=== PATIENT | male | born 1950 | race Caucasian/White ===

== ENCOUNTER → 2016-10-16 | Outpatient (CLI) | payer BC ==
[~2016-10-16] MED LIST: ALBU1AER9 INH; AMLO-110 PO; ASPI81TA28 PO; CALC-206 PO; CETI10TA10 PO; CETI10TA84 PO; DEXT1TAB50 PO; ECON0.05 TOP; FLUT0.0529 NAE; FLUT0.15; FLUT1AER5 INH; HYDR-5688 PO; LEVO-459 PO; LEVO1TAB33 PO; MOME100A INH; MOME200A INH; MONT1TAB3 PO; MULT-506 PO; PRED10TA PO; RTXI500 IV
== END | disposition home or self-care (01) ==
LOC: C.CPL 11:37
PROVIDERS: ATTEND Orthopaedic Surgery
DX: M75.101 Unspecified rotator cuff tear or rupture of right shoulder, not specified as traumatic (principal)

== ENCOUNTER 2016-12-03 00:50 | Inpatient (IN) | payer BC, OTHER ==
[2016-12-03] VITALS (15 sets, daily range): BP systolic 119–165; BP diastolic 62–91; PULSE 59–99; TEMP 36.1–37.6; O2SAT 92–98; Ht 180.3 cm; Wt 97.0 kg
[~2016-12-03] VITALS: Ht 180.3 cm; Wt 97.0 kg
[~2016-12-03 00:50] MED LIST changes: -CETI10TA10 PO; -DEXT1TAB50 PO; -FLUT0.15; -FLUT1AER5 INH; -HYDR-5688 PO; -LEVO-459 PO; -LEVO1TAB33 PO; -MOME100A INH; -MOME200A INH; -MONT1TAB3 PO
[2016-12-03] MEDS ORDERED: POLYETHYLENE (MIRALAX) 17 GM PACK PO PRN (03:30)
[2016-12-03] MEDS ORDERED: ONDANSETRON INJ 2 MG/ML 2 ML VIAL IV PRN (03:30)
[2016-12-03] MEDS ORDERED: ACETAMINOPHEN 325 MG TAB PO PRN (03:30)
[2016-12-03] MEDS ORDERED: MoRPHine SULFATE 2 MG/ML CARP IV PRN (03:30)
[2016-12-03] MEDS ORDERED: NITROGLYCERIN 0.4 MG SL PER TAB CHARGE SL PRN (03:30)
[2016-12-03] MEDS ORDERED: CETI10TA10 PO (03:36)
[2016-12-03] MEDS ORDERED: MONT1TAB3 PO (03:38)
[2016-12-03] MEDS ORDERED: DEXT1TAB50 PO (03:38)
[2016-12-03] MEDS ORDERED: OPTIRAY 320 IV PRN (04:00)
--- NOTE | 2016-12-03 04:22 | History and Physical ---
History & Physical Date & Time of Service: December 03, 2016 at 04:01 Chief Complaint: New Onset Lt Bbb, Bronchitis, Elevated D Dimer Primary Care Physician: Ilya Rubio M.D. History of Present Illness Source: patient, hospital records This is a 66 yo m that is a transfer from [facility] for the evaluation of a new onset LBBB. The patient states that approx a week ago he started with his typical " allergy symptoms' and was taking his regular regimen of INCS, albuterol and cetirizine. Approx three days prior when he was in [place] the patient started to have intermittent chest tightness associated with a very "tight cough". He was productive for clear to yellow mucus without hemoptysis. He denied any chest pain but with every bout of this tightness he would also feel clammy. He never had any nausea with these episodes. He also notes that for the past month he has had increasing dyspnea walking over hills which he never used to have. He typically walks 2-3 miles/ day. As these episodes were unrelenting he decided to go to the [facility] for evaluation. In [place] the patient was found to have eosinophilia, an elevated DDimer and a new LBBB compared to an EKG done approx 4 weeks prior for a right shoulder surgery. [facility] was contacted to continue further evaluation at this hospital. He states he has no history of GA/ stroke/ TIA. He does have a history of a heart murmur as a child associated with rheumatic fever. He had his last stress tests approx 4-5 years ago with Dobutamine which was "very unpleasant". He does not smoke. There is a history of GA in both grandfathers at older ages and a brother in his 60s. he is treated for RA with rituximab. he has a history of asthma. Past Medical/Surgical History Medical Problems: (1) Asthma, Unspecified Status: Chronic (2) Bronchitis Status: Resolved (3) Diab Diamante Wo Compl, Type Ii Or Unspec Type, Uncontrolled Status: Chronic (4) Hyperlipidemia Nec/Nos Status: Chronic (5) Hypertension Nos Status: Chronic (6) Lymphoma Status: Resolved (7) Rheumatoid Arthritis Status: Chronic (8) Sinusitis Status: Resolved (9) Sinusitis Status: Resolved Family History FHx: cancer Social History Smoking Status: Never Smoker Smokeless Tobacco Use: No Alcohol Use: socially Drug Use: none Marital Status: Housing status: lives with family Occupational Status: employed Immunizations History of Influenza Vaccine: Unknown History of Tetanus Vaccine?: utd History of Pneumococcal: Unknown History of Hepatitis B Vaccine: No Multi-Drug Resistant Organisms History of MDRO: No Allergies Coded Allergies: Metronidazole (Verified Allergy, Severe, HIVES AND SHORTNESS OF BREATH, ) Sulfa Antibiotics (Verified Allergy, Intermediate, HIVES, GI UPSET, ) Ciprofloxacin (Verified Adverse Reaction, Mild, GI UPSET, 04/01/16) Home Medications Scheduled Amlodipine (Norvasc), 5 MG PO QAM Aspirin (Aspirin Ec), 1 TAB PO DAILY Cetirizine Hcl (Zyrtec), 10 MG PO DAILY Dextromethorphan-Guaifenesin (Mucinex Dm Maximum Streng), 1 TAB PO BID Montelukast Sodium (Singulair), 1 TAB PO DAILY Multivitamin (Multivitamin), 1 TAB PO QPM Scheduled PRN Albuterol (Proair Hfa), 2 PUFF INH Q4 PRN for SOB/Wheezing Fluticasone Propionate (Nasal) (Flonase), 1 SPRAY NANDA QPM PRN for PRN Review of Systems Constitutional: No chills, No fever Eyes: No worsening of vision ENT: No hearing loss Respiratory: + cough, + dyspnea on exertion, + sputum, + wheezing, No dyspnea at rest, No hemoptysis, No shortness of breath Cardiovascular: + chest pain (tightness) Abdomen: No constipation, No diarrhea, No nausea, No pain, No vomiting Musculoskeletal: No joint pain, No muscle pain Neurologic: No balance problems, No numbness/tingling, No weakness Psychiatric: No depression symptoms Endocrine: No fatigue Integumentary: No rash Allergic / Immunologic: + environmental allergies, + seasonal allergies Physical Exam Vital Signs Date Time Temp Pulse Resp B/P Pulse Ox O2 Delivery O2 Flow Rate FiO2 12/03/16 03:55 37.6 81 17 119/62 92 Nasal Cannula 2.0 12/03/16 03:43 36.7 79 20 165/91 96 Room Air 12/03/16 02:45 36.7 79 18 165/91 94 Room Air General Appearance: no apparent distress Head: normocephalic, atraumatic Eyes: normal inspection ENT: normal ENT inspection Neck: supple Respiratory/Chest: no respiratory distress, no accessory muscle use, + wheezing , + pertinent finding (coarse breath sounds throughout) Cardiovascular: regular rate, rhythm, no murmur, normal peripheral pulses Abdomen/GI: normal bowel sounds, non tender, soft Back: normal inspection Extremities/Musculoskelatal: normal inspection, no calf tenderness, no pedal edema Neurologic/Psych: alert, normal mood/affect, oriented x 3 Skin: normal color, warm/dry, no rash Lymphatic: no adenopathy Diagnostics Laboratory Results Results Past 24 Hours Test 12/03/16 03:27 12/03/16 03:38 Range/Units EKG new LBBB noted Impression Assessment and Plan This is a 66 yo m that has been found to have a new LBBB on EKG and has been suffering from an asthma exacerbation associated with seasonal allergies vs infectious source. New LBBB on EKG, Asses for silent GA/ NSTEMI - tele admission - repeat cbc, bmp and troponin - plan for echo - NPO in case there is a decision for cardiac cath - repeat EKG - FLP Acute asthma exacerbation; eosinophilia, atopy vs infectious? - Duoneb Q4h - Pulmicort bid - patient has an elevation in his glucose currently and would probably benefit from non systemic steroids - Initiate Singulair which may help with seasonal symptoms - considering the eosinophilia patient may benefit from outpt allergy testing if not already done - fluticasone nasal daily - Azithromycin and zosyn - secondary to worsening sputum production and coarse breath sounds deescalate accordingly however most likely atopic in nature as no WBC noted Elevated D Dimer - CTA and LE doppler - reassess once results received HTN - continue amlodipine Elevated glucose - HBA1C DVT Prophylaxis - SCD until decision made for catheterization Level of Care Telemetry Advanced Directives Existing Living Will: No Existing Power of Reinspector: No Resuscitation Status FULL RESUSCITATION VTE Prophylaxis VTE Risk Assessment Done? Y/N: Yes Risk Level: Moderate Given or contraindicated: SCD's Social Service Consult None Apply Note Total Time: Critical Care 30 - 74 minutes Additional Copies To Ilya Rubio M.D. Assessment and Plan Attending Addendum: I have physically seen and examined this patient, have directed their medical care, have supervised the medical residents activities, and agree with the H&P as noted above, with the following changes: NONE
[2016-12-03] MEDS ORDERED: PIPERACILL/TAZOBAC CONSULT ACTIVE PRN (04:45)
[2016-12-03 04:47] LABS: BASO % 0.5 %; BASO ABS # 0.04 K/uL (0-0.2); COMPLETE YES; EOS % 7.6 %; HEMATOCRIT 39.9 % (42-52); IG% 0.5 %; LYMPH ABS # 1.53 K/uL (1.2-3.4); MEAN CELL VOLUME 89.7 fL (80-100); MEAN CORPUSCULAR HEMOGLOBIN 30.8 pg (25-34); MEAN CORPUSCULAR HGB CONC 34.3 g/dl (32-36); MEAN PLATELET VOLUME 8.8 fL (7.4-10.4); MONO % 8.5 %; NEUT % 62.9 %; PLATELET COUNT 143 K/uL (130-400); RED BLOOD COUNT 4.45 M/uL (4.7-6.1); WHITE BLOOD COUNT 7.64 K/uL (4.8-10.8)
[2016-12-03 04:57] LABS: PROTHROMBIN TIME (PATIENT) 10.9 SECONDS (9.0-12.0)
[2016-12-03] MEDS ORDERED: PIPERACILL/TAZOBAC IV 3.375 GM in DEXTROSE 5% 100ML IV ONE (05:00)
[2016-12-03 05:04] LABS: BLOOD UREA NITROGEN 15 mg/dl (7-18); BUN/CREATININE RATIO 15.8 (10-20); CALCIUM 8.5 mg/dl (8.5-10.1); CARBON DIOXIDE 28 mmol/L (21-32); CHLORIDE 110 mmol/L (98-107); CREATININE 0.96 mg/dl (0.60-1.40); GLUCOSE 109 mg/dl (70-99); POTASSIUM 3.9 mmol/L (3.5-5.1); SODIUM 143 mmol/L (136-145)
[2016-12-03] MEDS: FLUTICASONE PROPIONATE NA SPR 16 GM BTL SCH (05:05)
[2016-12-03 05:15] LABS: ALB/GLOB RATIO 1.1 (0.9-2)
[2016-12-03 05:16] LABS: ALKALINE PHOSPHATASE 72 U/L (45-117); ALT/SGPT 54 U/L (12-78); AST/SGOT 42 U/L (15-37); CHOLESTEROL 83 mg/dl (0-200); CHOLESTEROL/HDL RATIO 1.8; HDL CHOLESTEROL 47 mg/dl; LDL CHOLESTEROL CALCULATED 21 mg/dl; TRIGLYCERIDES 76 mg/dl (0-150); VERY LOW DENSITY LIPOPROT CALC 15 mg/dl
[2016-12-03] MEDS ORDERED: PIPERACILL/TAZOBAC IV 3.375 GM in DEXTROSE 5% 100ML 100 ML IV SCH (06:00)
[2016-12-03 06:44] LABS: ESTIMATED AVERAGE GLUCOSE 117 mg/dl; HA1C FLAG Normal (Normal)
--- NOTE | 2016-12-03 07:45 | DIAGNOSTIC IMAGING REPORT ---
BILATERAL LOWER EXTREMITY VENOUS DOPPLER CLINICAL HISTORY: Elevated d-dimer. New onset left bundle branch block. History of lymphoma. COMPARISON STUDY: CT of the abdomen and pelvis April 01, 2016. TECHNIQUE: Sonography of the deep venous system of the bilateral lower extremities was performed. Compression and augmentation were evaluated. FINDINGS: The bilateral common femoral, superficial femoral and popliteal veins were compressible. Augmentation was normal. Flow was shown within the deep calf vessels. IMPRESSION: 1. No evidence of deep venous thrombus within the bilateral lower extremities. 2. Enlarged left inguinal lymph node which measures 3.7 x 1.5 x 2.9 cm. This node was not visualized on CT of April 01, 2016. This finding is suspicious for lymphoma given the clinical history. Electronically signed by: José Miguel Cruz M.D. 12/03/2016 7:44 AM Dictated Date/Time: 12/03/2016 7:32 AM
--- NOTE | 2016-12-03 07:47 | DIAGNOSTIC IMAGING REPORT ---
CHEST CTA for PULMONARY ARTERIES CT DOSE: 655.69 mGy.cm HISTORY: Elevated d-dimer. Recent surgery. Short of breath. TECHNIQUE: Multiaxial CT images of the chest were performed following the intravenous administration of contrast to evaluate the pulmonary arteries. Maximal intensity projection images were also obtained. COMPARISON STUDY: Chest CT 06/15/2014. FINDINGS: No evidence for an aortic dissection or pulmonary embolus. Trace bilateral pleural effusions, unchanged. Hepatic steatosis. The spleen and adrenal glands are unremarkable. An 8 mm left thyroid nodule. No significant mediastinal or hilar lymphadenopathy. The heart is normal in size. A few prominent bilateral axillary lymph nodes. These have increased in size compared to the prior study. Dominant left axillary lymph node measures 1.3 x 0.9 cm. No pneumothorax. Mild bibasilar bronchial wall thickening. A 6 mm nodular density within the right lower lobe on image 152. This is similar to the prior study and is therefore likely benign. Small areas of consolidation within the lower lobes posteriorly which favor mild atelectasis. IMPRESSION: 1. No evidence for pulmonary embolus. 2. Trace bilateral pleural effusions, unchanged. 3. Mild bibasilar bronchial wall thickening. 4. Hepatic steatosis Electronically signed by: Rafael Hampton M.D. 12/03/2016 7:46 AM Dictated Date/Time: 12/03/2016 7:39 AM
[2016-12-03] MEDS: BUDESONIDE 0.5 MG/2 ML VIAL (PULMICORT) INH SCH ×2 (07:51→19:30)
[2016-12-03] MEDS: ALBUT/IPRATROP 3MG/0.5MG NEB 3 ML VIAL INH SCH ×4 (07:51→19:30)
--- NOTE | 2016-12-03 07:57 | Hospitalist Progress Note ---
Hospitalist Progress Note Date of Service December 03, 2016. (Mary Dobbs PA-C) Subjective Pt evaluation today including: conversation w/ patient, physical exam, chart review, lab review, review of studies Pain: None PO Intake: NPO Voiding: no voiding problems The patient was seen and examined this morning. Pt reports feeling weak this morning but denies any acute onset of chest pain. He denies sob at rest or on exertion. He is asking about his labwork and results were discussed with him. He understands that it is possible that he needs a cardiac cath. He is currently on antibiotics for upper respiratory infection, pt denies fever, sweats or chills. Additional Comments: 6 point ROS was obtained and otherwise negative. (Mary Dobbs PA-C) Objective Vital Signs Date Time Temp Pulse Resp B/P Pulse Ox O2 Delivery O2 Flow Rate FiO2 12/03/16 04:00 Nasal Cannula 2.0 12/03/16 03:55 37.6 81 17 119/62 92 Nasal Cannula 2.0 12/03/16 03:43 36.7 79 20 165/91 96 Room Air 12/03/16 02:45 36.7 79 18 165/91 94 Room Air (Mary Dobbs PA-C) Physical Exam General Appearance: WD/WN, no apparent distress Eyes: PERRL, EOMI ENT: hearing grossly normal, pharynx normal Neck: supple, no JVD Respiratory/Chest: no respiratory distress, no accessory muscle use, + plerual rub (room air, diminished breath sounds in L field), + pertinent finding Cardiovascular: regular rate, rhythm, + systolic murmur Abdomen: normal bowel sounds, non tender, soft, no organomegaly Extremities: non-tender, normal inspection, no pedal edema, no calf tenderness Neurologic/Psychiatric: alert, normal mood/affect, oriented x 3 Skin: normal color, warm/dry (Mary Dobbs PA-C) Laboratory Results Last 24 Hours Test 12/03/16 04:35 White Blood Count 7.64 K/uL Red Blood Count 4.45 M/uL Hemoglobin 13.7 g/dL Hematocrit 39.9 % Mean Corpuscular Volume 89.7 fL Mean Corpuscular Hemoglobin 30.8 pg Mean Corpuscular Hemoglobin Concent 34.3 g/dl Platelet Count 143 K/uL Mean Platelet Volume 8.8 fL Neutrophils (%) (Auto) 62.9 % Lymphocytes (%) (Auto) 20.0 % Monocytes (%) (Auto) 8.5 % Eosinophils (%) (Auto) 7.6 % Basophils (%) (Auto) 0.5 % Neutrophils # (Auto) 4.80 K/uL Lymphocytes # (Auto) 1.53 K/uL Monocytes # (Auto) 0.65 K/uL Eosinophils # (Auto) 0.58 K/uL Basophils # (Auto) 0.04 K/uL RDW Standard Deviation 43.7 fL RDW Coefficient of Variation 13.3 % Immature Granulocyte % (Auto) 0.5 % Immature Granulocyte # (Auto) 0.04 K/uL Prothrombin Time 10.9 SECONDS Prothromb Time International Ratio 1.0 Sodium Level 143 mmol/L Potassium Level 3.9 mmol/L Chloride Level 110 mmol/L Carbon Dioxide Level 28 mmol/L Anion Gap 5.0 mmol/L Blood Urea Nitrogen 15 mg/dl Creatinine 0.96 mg/dl Est Creatinine Clear Calc Drug Dose 90.9 ml/min Estimated GFR () 95.1 Estimated GFR (Non- 82.0 BUN/Creatinine Ratio 15.8 Random Glucose 109 mg/dl Estimated Average Glucose 117 mg/dl Hemoglobin A1c 5.7 % Calcium Level 8.5 mg/dl Total Bilirubin 0.6 mg/dl Aspartate Amino Transf (AST/SGOT) 42 U/L Alanine Aminotransferase (ALT/SGPT) 54 U/L Alkaline Phosphatase 72 U/L Troponin I < 0.015 ng/ml Total Protein 6.6 gm/dl Albumin 3.5 gm/dl Globulin 3.1 gm/dl Albumin/Globulin Ratio 1.1 Triglycerides Level 76 mg/dl Cholesterol Level 83 mg/dl HDL Cholesterol 47 mg/dl LDL Cholesterol, Calculated 21 mg/dl VLDL Cholesterol, Calculated 15 mg/dl Cholesterol/HDL Ratio 1.8 Procalcitonin 0.09 ng/ml (Mary Dobbs, JULIUS) Assessment and Plan This is a 66 yo m that has been found to have a new LBBB on EKG and has been suffering from an asthma exacerbation associated with seasonal allergies vs infectious source. New LBBB on EKG, Asses for silent GA/ NSTEMI - Trending cardiac biomarkers, initial was negative, follow x 2 more sets - echo ordered for this morning - NPO in case there is a decision for cardiac cath, await cardiology consultation - appreciate recs - repeat EKG this morning showing depressed ST wave inversions in the anterior leads which are concerning for ischemia. This has changed from EKG last evening where he had a new onset LBBB. Acute asthma exacerbation; eosinophilia, atopy vs infectious? - Duoneb Q4h - Pulmicort bid - Initiate Singulair which may help with seasonal symptoms - considering the eosinophilia patient may benefit from outpt allergy testing if not already done - fluticasone nasal daily - Azithromycin and zosyn - secondary to worsening sputum production and coarse breath sounds, will dc zosyn Elevated D Dimer - CTA- without evidence for PE, CT does show bilateral trace pleural effusions. - Venous doppler IMPRESSION: No evidence of deep venous thrombus within the bilateral lower extremities. *Enlarged left inguinal lymph node which measures 3.7 x 1.5 x 2.9 cm. This node was not visualized on CT of April 01, 2016. This finding is suspicious for lymphoma given the clinical history. HTN - HOLD amlodipine 5 mg daily as BP remains stable Elevated glucose - HBA1C = 5.7 - Follow on daily bmp DVT ppx: Teds, scds, no chemical anticoagulation at this time. CODE STATUS: FULL CODE Disposition: From home, await lab results and if need for nuclear stress test vs cardiac cath (Mary Dobbs PA-C) PA Physician Supervision Note: I interviewed and examined the patient. Discussed with Mary Dobbs PAC and agree with findings and plan as documented in the note. Any exceptions or clarifications are listed here: None Pt has no further chest pain but complains of persistent chest tightness, SOB and cough. I did discuss the case with Dr Alfonso regarding ECG changes and he eval with determinination to have stress if baseline echo normal noted LN on inguinal u/s and some minor changes on CTA, may need biopsy vitals stable car regular lungs with scant wheezes eval for unstable ECG changes that may imply CAD, once this is complete consider FNA of groin LN Documented By: Justino Perkins (Justino Perkins M.D.)
[2016-12-03] MEDS: AZITHROMYCIN IV 500 MG in DEXTROSE 5% 250ML 250 ML IV SCH (08:48)
[2016-12-03] MEDS ORDERED: HEPARIN SOD 5000 UNIT/0.5 ML CARP SQ SCH (09:00)
[2016-12-03] MEDS: PIPERACILL/TAZOBAC IV 3.375 GM in DEXTROSE 5% 100ML IV SCH ×2 (11:15→18:14)
--- NOTE | 2016-12-03 16:45 | ECHOCARDIOGRAM REPORT ---
*NOTICE TO RECEIVING [employer] This information is strictly Confidential and protected under [place] law. [place] law prohibits you from making any further disclosure of this information unless further disclosure is expressly permitted by the written consent of the person to whom it pertains or is authorized by law. A general authorization for the release of medical or other information is not sufficient for this purpose. Hospital accepts no responsibility if the information is made available to any other person, INCLUDING THE PATIENT. Interpretation Summary * Name: JIMBO XIAO Study Date: 12/03/2016 02:48 PM BP: 127/77 mmHg * Patient Location: C.2T\S\S241\S\1 HR: 63 * : 1950 (M/d/yyyy) Gender: Male Height: 70 in * Age: 66 yrs Ethnicity: CA Weight: 219 lb * Ordering Physician: Sharri Snow * Performed By: Lyly Barillas * * Reason For Study: NEW LBBB * BSA: 2.2 m2 * Normal biventricular systolic function. * Left ventricular diastolic dysfunction. * Mild left atrial dilatation. * Trace aortic regurgitation. * Trace pulmonic regurgitation. * Trace tricuspid regurgitation. * Trace mitral regurgitation. * -- Conclusions -- * Aortic valve sclerosis mild, without significant aortic valvular stenosis. Procedure Details * A complete two-dimensional transthoracic echocardiogram was performed (2D, M-mode, Doppler and color flow Doppler). * A contrast injection of Definity was performed to improve assessment of LV function. * Contrast was injected into an intravenous site in the left arm. * One vial of Definity ultrasound contrast was diluted in normal saline to a total volume of 10 ml. A total of '3' ml of solution was administered during imaging. * Lot # [id number] of Definity utilized for procedure. * Expiration date 12/21. * The attending nurse who injected the contrast agent was GEOVANNA JIMÉNEZ RN. Left Ventricle * The left ventricle is normal in size. * Proximal septal thickening is noted. * Ejection Fraction = 55-60%. * Left ventricular systolic function is normal. * A full diastolic examination was done with clinical findings of Class I diastolic dysfunction. * The left ventricular wall motion is normal. Right Ventricle * The right ventricular systolic function is normal as assessed by tricuspid annular plane systolic excursion (TAPSE) (normal >1.5 cm). Atria * The left atrium is mildly dilated. * Right atrial size is normal. * No ASD detected; PFO is not assessed. Mitral Valve * The mitral valve is normal. * There is no mitral valve stenosis. * There is trace mitral regurgitation. Tricuspid Valve * The tricuspid valve is normal. * There is no tricuspid stenosis. * There is trace tricuspid regurgitation. * Right ventricular systolic pressure is normal. Aortic Valve * The aortic valve is trileaflet. * The aortic valve opens well. * Aortic valve sclerosis mild, without significant aortic valvular stenosis. * Aortic stenosis is absent. * Trace aortic regurgitation. Pulmonic Valve * The pulmonary valve is inadequately visualized, but the Doppler data is adequate for interpretation. * There is no pulmonic valvular stenosis. * Trace pulmonic valvular regurgitation. Pericardium/Pleural * There is no pericardial effusion. Great Vessels * Normal inferior vena cava diameter and respiratory variation suggests normal central venous pressure. MMode 2D Measurements and Calculations IVSd 1.1 cm IVSs 1.8 cm LVIDd 4.2 cm LVIDs 2.9 cm LVPWd 1.1 cm LVPWs 2.2 cm IVS/LVPW 10 FS 32.1 % EDV(Teich) 78.9 ml ESV(Teich) 31.0 ml EF(Teich) 60.7 % EDV(cubed) 74.4 ml ESV(cubed) 23.3 ml EF(cubed) 68.8 % % IVS thick 67.9 % % LVPW thick 99.5 % LV mass(C)d 154.9 grams LV mass(C)dI 71.4 grams/m\S\2 LV mass(C)s 248.6 grams LV mass(C)sI 114.6 grams/m\S\2 SV(Teich) 47.9 ml SI(Teich) 22.1 ml/m\S\2 SV(cubed) 51.2 ml SI(cubed) 23.6 ml/m\S\2 ACS 1.7 cm LA dimension 4.2 cm asc Aorta Diam 3.6 cm LVOT diam 2.2 cm LVOT area 3.7 cm\S\2 LVAd ap4 44.3 cm\S\2 LVLd ap4 10.0 cm EDV(MOD-sp4) 159.0 ml EDV(sp4-el) 166.4 ml LVAs ap4 24.8 cm\S\2 LVLs ap4 7.9 cm ESV(MOD-sp4) 64.3 ml ESV(sp4-el) 66.3 ml EF(MOD-sp4) 59.5 % EF(sp4-el) 60.1 % LVAd ap2 33.4 cm\S\2 LVLd ap2 9.1 cm EDV(MOD-sp2) 98.8 ml EDV(sp2-el) 103.4 ml LVAs ap2 19.2 cm\S\2 LVLs ap2 7.7 cm ESV(MOD-sp2) 40.3 ml ESV(sp2-el) 40.3 ml EF(MOD-sp2) 59.2 % EF(sp2-el) 61.0 % LVLd %diff -9.55 % EDV(MOD-bp) 131.9 ml LVLs %diff -2.17 % ESV(MOD-bp) 51.4 ml EF(MOD-bp) 61.0 % SV(MOD-sp4) 94.7 ml SI(MOD-sp4) 43.6 ml/m\S\2 SV(MOD-sp2) 58.5 ml SI(MOD-sp2) 27.0 ml/m\S\2 SV(MOD-bp) 80.5 ml SI(MOD-bp) 37.1 ml/m\S\2 SV(sp4-el) 100.0 ml SI(sp4-el) 46.1 ml/m\S\2 SV(sp2-el) 63.1 ml SI(sp2-el) 29.1 ml/m\S\2 Doppler Measurements and Calculations MV E max sheri 53.6 cm/sec MV A max sheri 87.2 cm/sec MV E/A 0.61 MV dec time 0.30 sec Ao V2 max 136.1 cm/sec Ao max PG 7.4 mmHg Ao max PG (full) 4.9 mmHg ANITHA(V,A) 2.2 cm\S\2 ANITHA(V,D) 2.2 cm\S\2 AI max sheri 484.7 cm/sec AI max PG 94.0 mmHg AI dec slope 210.6 cm/sec\S\2 AI P1/2t 674.0 msec LV V1 max PG 2.5 mmHg LV V1 max 79.6 cm/sec PA V2 max 76.0 cm/sec PA max PG 2.3 mmHg TR max sheri 246.8 cm/sec
[2016-12-03] MEDS ORDERED: METHYLPREDNISOLONE IV 40 MG in SYRINGE 0 ML IV ONE (17:00)
--- NOTE | 2016-12-03 18:31 | CARDIOLOGY CONSULTATION ---
DATE OF CONSULTATION: 12/03/2016 PRIMARY PHYSICIAN: Ilya Rubio MD ATTENDING PHYSICIAN: Justino Perkins MD CONSULTATION: Jaime Alfonso MD HISTORY OF PRESENT ILLNESS: The patient is a 66-year-old white male. He has a longstanding history of asthma and environmental allergies. He states that on November 27, he began to develop symptoms consistent with environmental allergies. He had sinus congestion and sinus pain. He also had a postnasal drip. Thereafter, he began to develop a cough associated with wheezing and sputum production. He states the cough has been productive of green sputum. No blood in the sputum. No sore throat or earache. No fevers or chills. The cough progressively worsened. He was coughing so much that he began to develop a muscular type pain in his right upper quadrant. This was worse with coughing or deep breathing. He heard himself wheezing. Because of the persistent cough, he went to the [facility] for evaluation on the morning of December 02. An electrocardiogram was performed and revealed a left bundle-branch block. No previous history of left bundle-branch block. The rate with the left bundle-branch block was 77 beats per minute. Sinus rhythm with mild first-degree AV block. Cardiac enzymes performed at [facility] were negative for myocardial ischemia. He was treated with a DuoNeb nebulizer as well as IV fluids. Because of the left bundle-branch block, he was transferred to the [facility]. History is obtained by me from the patient. Also obtained from his and son, who are in attendance in the room at the time. The patient states to me that he has not experienced any chest tightness or chest pain. He denies any anginal type pains. He states his only symptom over the past several days has been the nasal congestion, post nasal drip, cough, wheezing, and dyspnea. He steadfastly denies that he has been experiencing any chest tightness or chest pain. No other anginal type pain such as shoulder, arm, neck, or back discomfort. He does have right lower chest and upper quadrant musculoskeletal type pain with prolonged coughing. It was reported that he was experiencing chest tightness with sensation of feeling "clammy." The patient denies that he is having chest tightness with clamminess sensation. He states that on occasion, he has had this sensation of feeling clammy without any associated symptoms. No definite fevers or chills. Prior to that the onset of his symptoms on November 27, he had been in his usual state of health. He can normally walk up to 2-3 miles at a time without any limiting cardiac or pulmonary complaints. On walking up a steep incline, he does have stable dyspnea. He denies any exertionally precipitated chest pains. No orthopnea or PND. No palpitations, lightheadedness, syncope, or peripheral edema. The patient states that since transfer to [facility], he continues to have a cough. His family has heard him wheezing in the room. He states that yesterday his sputum production decreased, but the cough has persisted. He feels that he cannot bring up the sputum at this time. PAST MEDICAL HISTORY: 1. Asthma and environmental allergies. 2. Hypertension for the past 4-5 years. 3. History of low cholesterol levels. 4. No history of diabetes mellitus. 5. Status post treatment for non-Hodgkin's lymphoma. Six cycles of R-CHOP chemotherapy. 6. Episode of supraventricular tachycardia on 10/27/2015. The electrocardiogram from his visit to [facility] at that time reviewed by me. It shows supraventricular tachycardia at a rate of 138 beats per minute. The patient reports he was given intravenous medication, which terminated the rhythm. No other history of arrhythmia. 7. History of undergoing cardiac catheterization in 2008, performed at [facility]. The report was reviewed by me. It states normal coronary arteries, normal LV systolic function and wall motion. On 10/28/2015, he underwent a Lexiscan nuclear perfusion study. Normal coronary artery perfusion and normal LV wall motion reported. On the same day, he underwent an echocardiogram. The report states that there was normal LV size and wall thickness. Lateral, posterior, apical, inferior, and apical wall motion abnormalities were reported. It is reported that these areas were hypokinetic. The reported LV ejection fraction was 35%-40%. Trace aortic insufficiency. CT angiogram performed on 10/27/2015 revealed no significant coronary artery calcifications. No pulmonary embolus. Holter monitor performed on 11/09/2015 revealed sinus rhythm and sinus bradycardia. First-degree AV block. Rare PACs. Rare PVCs. 8. Rheumatoid arthritis. 9. History of diverticulosis and diverticulitis. 10. Status post surgery of right shoulder 4 weeks ago. Arthroscopic surgery. 11. Status post arthroscopic surgery, right knee in March 2016. 12. Status post pilonidal cyst resection. CURRENT MEDICATIONS: Singulair 10 mg at bedtime, piperacillin/tazobactam 3.375 grams IV q. 8 hours, Flonase nasal spray 2 sprays daily, azithromycin 5 mg IV daily, DuoNeb 3 mL q.i.d., Pulmicort 0.5 mg b.i.d., and several p.r.n. medications. ALLERGIES AND ADVERSE DRUG REACTIONS: CIPROFLOXACIN, METRONIDAZOLE, AND SULFA ANTIBIOTICS. SOCIAL HISTORY: The patient is and lives with his . He is a retired auto headlight mechanic. He had worked at [employer]. He currently does not smoke cigarettes. Remote history of cigarette smoking. FAMILY HISTORY: A brother sustained a myocardial infarction in his 60s. That brother was an alcoholic. REVIEW OF SYSTEMS: 1. As above. 2. No cerebrovascular or peripheral vascular complaints. 3. Varicose veins of both legs. 4. Chronic foot pain and "dropped arches." 5. No GI complaints. 6. No urinary complaints. PHYSICAL EXAMINATION: GENERAL: The patient is sitting up in bed. Frequent episodes of nonproductive coughing. VITAL SIGNS: Late this morning with oral temperature 36.4, pulse 63, blood pressure 127/77, and pulse oximetry on room air 95%. HEAD: Normal. EYES: Pupils are equal and round. Anicteric. Conjunctivae normal. No xanthelasma. FACE: No tenderness on palpation over the frontal or maxillary sinuses. MOUTH: No obvious dental abnormalities. Oropharynx is well visualized. No erythema or exudate. NECK: No jugular venous distention. Carotids 2/2 bilaterally. Normal upstroke. No bruits. No adenopathy. LUNGS: Diminished breath sounds in all lung mott. Diffuse rhonchi and expiratory wheezing in all lung mott. Decreased air movement. HEART: PMI normal. No lifts or heaves. Regular rate and rhythm. S1 and S2 normal. No S3 or S4. No murmur or rub. ABDOMEN: Soft. Nontender. No palpable masses or organomegaly. No bruits. EXTREMITIES: No pretibial edema. Varicose veins in both lower legs. Nontender. No cyanosis or clubbing. PULSES: Distal pulses in all extremities strongly palpable. NEUROLOGICAL: Alert and oriented x3. Motor grossly intact. PSYCHIATRIC: Affect is normal. DATA: Electrocardiogram performed this morning at 07:30 a.m. shows sinus bradycardia, first-degree AV block. T-wave inversions in V1-V4. Consider ischemia. Venous Doppler study of the legs on December 03 without evidence of deep venous thrombosis. CT angiogram of the chest on December 03 with no evidence for pulmonary embolus. Mild bibasilar bronchial wall thickening. Atelectasis in the lower lobes. Hepatic steatosis. Trace bilateral pleural effusions, unchanged from a study of 06/15/2014. No evidence of aortic dissection or pulmonary embolus. LABORATORY DATA: At [facility] show WBC 7.64, hemoglobin 13.7, hematocrit 39.9, and platelet count 143. INR 1.0. Metabolic profile, sodium 143, potassium 3.9, chloride 110, carbon dioxide 28, BUN 15, creatinine 0.96, and random glucose 109. Troponin I less than 0.015. Lipid profile: Total cholesterol 83, triglycerides 76, calculated LDL 21, and HDL 47. Hemoglobin A1c 5.7. ASSESSMENT: 1. Asthmatic bronchitis. On exam this afternoon, he has evidence of significant bronchospasm. He has diffuse wheezing and decreased air movement in all lung mott. 2. Recently with cough productive of a purulent appearing sputum. The sputum production decreased yesterday. He feels that he cannot clear sputum yesterday afternoon, last night, and today. 3. He denies to me that he was experiencing any anginal symptoms. He was asked repeatedly whether he was experiencing any chest tightness. He steadfastly denies this symptom to me. The reason he sought medical attention yesterday was because of the persistent cough associated with dyspnea and wheezing. 4. Good exercise tolerance prior to his recent respiratory illness. He was walking up to 3 miles at a time without any limiting cardiac or pulmonary complaints. 5. Cardiac catheterization report from 2008 reported normal coronary arteries. 6. Lexiscan pharmacologic stress test in 2015 negative for evidence of myocardial ischemia. It was reported that the LV wall motion was normal. On the same day, it was reported that he had segmental wall motion abnormalities on echocardiography. No documented history of myocardial infarction. 7. Cardiac enzymes on this admission negative for myocardial injury. The cardiac enzymes at [facility] were also negative. 8. History of supraventricular tachycardia in October 2015. Since then, no evidence of recurrent arrhythmias. 9. Mild first degree atrioventricular block. 10. Left bundle-branch block on electrocardiogram yesterday performed at [facility]. Subsequent resolution. No evidence of acute myocardial infarction by cardiac enzymes. He does have hypertension, which could predispose the development of left bundle-branch block. Also, cannot exclude that he has intrinsic conduction disease. This would be conduction disease involving his bundles. 11. Abnormal Electrocardiogram this morning with T-wave inversions. They are consistent with ischemia. There are no diagnostic ST segment depressions of ischemia. 12. Very low LDL. He does not take any medications to lower his cholesterol. He states he always has a low LDL. RECOMMENDATIONS: 1. It was extensively discussed with the patient his recent illness and symptoms. It was extensively discussed with him his prior cardiac history. Extensive discussion regarding current symptoms. In light of his negative cardiac enzymes and lack of any anginal symptoms (as he reports to me), would hold off on performing a cardiac catheterization. For the patient with a left bundle-branch block came to the office for evaluation and was not having any unstable anginal symptoms, we would usually just recommend an echocardiogram to assess LV wall motion and function and a myocardial perfusion scan with pharmacologic or exercise stress. This would be to exclude myocardial ischemia. Initially, I thought that the patient had typical anginal symptoms. After speaking with him, he denies any anginal type symptoms. Thus, at this time, recommend echocardiogram (which is being performed at the time of this dictation). We will order a Lexiscan pharmacologic stress test for tomorrow. 2. Even if the patient and I decide upon him getting a cardiac catheterization, we will not perform today as he has evidence of significant bronchospasm on exam. It is unlikely that he could lie flat for a prolonged period of time. Also, sedation could alter his respiratory status. Would not perform a cardiac catheterization unless he had evidence of unstable myocardial ischemia or evidence of significant myocardial ischemia on the nuclear perfusion scan. 3. Guaifenesin to help loosen the secretions. 4. Consider intravenous steroids. 5. Aspirin 81 mg daily in the event the patient did have underlying coronary artery disease. 6. Monitor blood pressure. Reinstitute antihypertensive therapy if his blood pressure becomes elevated. 7. Repeat electrocardiogram tomorrow. Over 1 hour was spent by me in evaluation and examining this patient. Over 50% of time was spent with the patient in obtaining history and performing physical exam. Medical records from [facility], [facility], and [facility] were reviewed by me. These included his prior cardiac testing results and his electrocardiograms. The electrocardiograms were personally reviewed by me. Thank you for asking me to see this patient in cardiology consultation. ELIZABETH
[2016-12-03] MEDS ORDERED: GUAIFENESIN SUGAR FREE 200 MG/10 ML UDC PO PRN (19:00)
[2016-12-03] MEDS ORDERED: MONTELUKAST SOD 10 MG TAB PO SCH (21:00)
[2016-12-04] VITALS (9 sets, daily range): BP systolic 133–159; BP diastolic 62–81; PULSE 62–86; TEMP 36.4–36.9; O2SAT 92–96
[2016-12-04] MEDS: PIPERACILL/TAZOBAC IV 3.375 GM in DEXTROSE 5% 100ML IV SCH ×2 (01:41→10:08)
[2016-12-04] MEDS: BUDESONIDE 0.5 MG/2 ML VIAL (PULMICORT) INH SCH (07:27)
[2016-12-04] MEDS: ALBUT/IPRATROP 3MG/0.5MG NEB 3 ML VIAL INH SCH ×4 (07:27→15:11)
[2016-12-04] MEDS: AZITHROMYCIN IV 500 MG in DEXTROSE 5% 250ML 250 ML IV SCH (07:47)
[2016-12-04] MEDS: FLUTICASONE PROPIONATE NA SPR 16 GM BTL SCH (07:48)
--- NOTE | 2016-12-04 08:06 | Hospitalist Progress Note ---
Hospitalist Progress Note Date of Service Dec 04, 2016. (Mary Dobbs PA-C) Objective Vital Signs Date Time Temp Pulse Resp B/P (MAP) Pulse Ox O2 Delivery O2 Flow Rate FiO2 12/04/16 07:28 62 16 96 Room Air 12/04/16 04:10 36.4 73 18 133/81 (98) 92 Room Air 12/04/16 04:00 Room Air 12/03/16 23:59 Room Air 12/03/16 23:16 37.1 99 20 125/80 (95) 97 Room Air 12/03/16 21:44 93 135/81 (99) 12/03/16 20:00 92 Room Air 12/03/16 19:49 36.5 83 16 151/84 (106) 92 Room Air 12/03/16 19:30 74 16 96 Room Air 12/03/16 16:00 96 Room Air 12/03/16 15:23 36.6 62 17 138/81 (100) 96 Room Air 12/03/16 12:00 95 Room Air 12/03/16 11:28 36.4 63 20 127/77 (94) 95 Room Air 12/03/16 11:19 88 20 98 Room Air 12/03/16 08:00 94 Room Air 2.0 12/03/16 08:00 36.1 59 20 124/75 (91) 94 Room Air (Mary Dobbs PA-C) Assessment and Plan This is a 66 yo m that has been found to have a new LBBB on EKG and has been suffering from an asthma exacerbation associated with seasonal allergies vs infectious source. New LBBB on EKG, Asses for silent IN/ NSTEMI - Trending cardiac biomarkers, initial was negative, follow x 2 more sets - echo ordered for this morning - NPO in case there is a decision for cardiac cath, await cardiology consultation - appreciate recs - repeat EKG this morning showing depressed ST wave inversions in the anterior leads which are concerning for ischemia. This has changed from EKG last evening where he had a new onset LBBB. - a Lexiscan pharmacologic stress test planned for today - no plans for cardiac cath, will need to determine if as evidence of significant for unstable myocardial ischemia or evidence of significant ischemia on the nuclear perfusion scan. - Asa 81 mg ordered daily Acute asthma exacerbation; eosinophilia, atopy vs infectious? - Duoneb Q4h - Pulmicort bid - Initiate Singulair which may help with seasonal symptoms - considering the eosinophilia patient may benefit from outpt allergy testing if not already done - fluticasone nasal daily - Azithromycin and zosyn - secondary to worsening sputum production and coarse breath sounds, will dc zosyn - Pt had been taking guiafenesin prior to admission, will continue at this time. Elevated D Dimer - CTA- without evidence for PE, CT does show bilateral trace pleural effusions. - Venous doppler IMPRESSION: No evidence of deep venous thrombus within the bilateral lower extremities. *Enlarged left inguinal lymph node which measures 3.7 x 1.5 x 2.9 cm. This node was not visualized on CT of April 01, 2016. This finding is suspicious for lymphoma given the clinical history. HTN - HOLD amlodipine 5 mg daily as BP remains stable Elevated glucose - HBA1C = 5.7 - Follow on daily bmp DVT ppx: Teds, scds, no chemical anticoagulation at this time. CODE STATUS: FULL CODE Disposition: From home, await lab results and if need for nuclear stress test vs cardiac cath (Mary Dobbs PA-C) PA Physician Supervision Note: I interviewed and examined the patient. Discussed with Mary Dobbs PAC and agree with findings and plan as documented in the note. Any exceptions or clarifications are listed here: None Pt has no further chest pain, feels chest discomfort was from coughing is on antibiotics for same and feels improved after one dose of steroids noted LN on inguinal u/s and some minor changes on CTA, may need biopsy vitals stable car regular lungs with scant wheezes, rhonchi at left base eval for unstable angina with nuclear scan treat for bronchitis with reactive airway with antibiotics consider FNA of groin LN, once cardiac work up is complete Documented By: Justino Perkins (Justino Perkins M.D.)
[2016-12-04] MEDS ORDERED: REGADENOSON 0.4 MG/5 ML SYR ONE (11:43)
[2016-12-04] MEDS ORDERED: LEVO-459 PO (16:33)
--- NOTE | 2016-12-04 16:36 | Discharge Instructions ---
Discharge Instructions Date of Service Dec 04, 2016. Admission Reason for Admission: New Onset Lt Bbb, Bronchitis, Elevated D Dimer Discharge Discharge Diagnosis / Problem: new LBBB, normal nuclear stress test Discharge Goals Goal(s): Diagnostic testing, Therapeutic intervention Activity Recommendations Activity Limitations: resume your previous activity . Current Hospital Diet Patient's current hospital diet: AHA Diet (Heart Healthy) Discharge Diet Recommended Diet: Regular Diet Pending Studies Studies pending at discharge: no Laboratory Results Hemoglobin A1c Test 12/03/16 04:35 Range/Units Estimated Average Glucose 117 mg/dl Hemoglobin A1c 5.7 H 4.5-5.6 % Lipid Panel Test 12/03/16 04:35 Range/Units Triglycerides Level 76 0-150 mg/dl Cholesterol Level 83 0-200 mg/dl HDL Cholesterol 47 mg/dl Cholesterol/HDL Ratio 1.8 LDL Cholesterol, Calculated 21 mg/dl Medical Emergencies . Who to Call and When: Medical Emergencies: If at any time you feel your situation is an emergency, please call 911 immediately. . Non-Emergent Contact Non-Emergency issues call your: Primary Care Provider, Surgeon (Dr Choi) Call Non-Emergent contact if: temperature is above 101, your pain is unusual for you . . "Provider Documentation" section prepared by Justino Perkins. . Deportation Examiner Recommendations Deportation Examiner Recommendations: Dr Dang office will call to schedule an appointment for your lymph node evaluation VTE Core Measure Inpt VTE Proph given/why not?: SCD's
--- NOTE | 2016-12-04 16:57 | CARDIOLOGY PROGRESS NOTE ---
DATE: 12/04/2016 SUBJECTIVE: The patient was seen by me this morning. From a cardiac standpoint, he is doing well. He denies any chest pain or tightness. No other anginal type pains. No lightheadedness or dizziness. No palpitations. No peripheral edema. His cough, dyspnea, and wheezing have improved from yesterday. No fevers or chills. He denies any dyspnea at rest. No orthopnea or PND overnight. No neurologic symptoms. No GI or urinary complaints. MEDICATIONS: Singulair 10 mg at bedtime, guaifenesin 2 mg q. 6 hours p.r.n., piperacillin/tazobactam 3.375 grams IV q. 8 hours, Flonase 2 sprays daily, azithromycin 500 mg IV daily, DuoNeb 3 mL q.i.d., Pulmicort 0.5 mg b.i.d., and a few p.r.n. medications. He received a dose of intravenous methylprednisolone yesterday afternoon. ALLERGIES AND ADVERSE DRUG REACTIONS: CIPROFLOXACIN, METRONIDAZOLE, SULFA ANTIBIOTICS. PHYSICAL EXAMINATION: VITAL SIGNS: This morning with oral temperature is 36.9, pulse 79, blood pressure 159/79 pulse oximetry on room air 94%. NECK: No jugular venous distention. LUNGS: Normal respiratory effort. Scant and scattered rhonchi and expiratory wheezing. HEART: Regular rate and rhythm. S1, S2 normal. No murmur, gallop or rub. ABDOMEN: Soft. Nontender. No palpable masses or organomegaly. No bruits. EXTREMITIES: No pretibial edema. No cyanosis or clubbing. NEUROLOGIC: Alert and oriented x3. Motor grossly intact. PSYCHIATRIC: Affect is normal. DATA: Electrocardiogram performed last evening showed normal sinus rhythm, left bundle branch block. Ventricular rate 93 beats per minute. LABORATORY DATA: No new labs today. DATA: The patient underwent a Lexiscan pharmacologic stress test today. He had no chest pain or other anginal type pains with pharmacologic stress. His electrocardiogram revealed left bundle branch block. The myocardial perfusion scan revealed no reversible myocardial ischemia. There was a fixed diaphragmatic defect. However, the wall motion in this area is normal. On echocardiogram, the wall motion in this area is also normal. Thus, doubt that the patient has any underlying myocardial injury. This would be based upon the retained wall motion in the area of decreased perfusion. There is no reported reversibility of this defect. It could be secondary to diaphragmatic attenuation. ASSESSMENT: 1. Intermittent left bundle branch block. No significant underlying structural heart disease on echocardiography. Echocardiogram yesterday with normal biventricular systolic function, left ventricular diastolic dysfunction, and trace valvular regurgitations. There is proximal septal thickening. Otherwise, the left ventricular mora were not hypertrophied. Lexiscan pharmacologic stress test today without evidence of reversible myocardial ischemia. The patient has no exertional symptoms suggestive of angina. 2. Improving asthmatic bronchitis. 3. History of hypertension. Blood pressure mildly increased this morning. Normally, the patient is on amlodipine for his blood pressure control. 4. Cardiac enzymes at [facility] and at [facility] negative for evidence of myocardial ischemia. PLAN AND RECOMMENDATIONS: 1. No further cardiac workup at this time. 2. Restart amlodipine if blood pressure remains elevated. 3. Continue management of his underlying lung disease by the hospitalist staff. 4. Extensive discussion by me with patient regarding his LBBB. Patient given copies of his ECG. ELIZABETH
--- NOTE | 2016-12-04 22:43 | MYOCARDIAL PERFUSION SCAN ---
MYOCARDIAL PERFUSION STUDY ORDERING PHYSICIAN: Dr. Alfonso. PRIMARY HOSPITALIST: Dr. Perkins. TIME: 1533 p.m. PROCEDURE: 1. Myocardial perfusion study performed in multiple views/images. 2. Lexiscan pharmacologic stress ECG. INDICATIONS: 1. New onset left bundle branch block. CONSENT: Informed written consent was obtained. PROCEDURAL DETAILS: For the stress portion of the study, Lexiscan 0.4 mg was intravenously administered over 10-15 seconds followed by saline flush. This was followed with 33.3 mCi of technetium-99m Cardiolite injection intravenously at 1315 p.m. on 12/04/2016. Thirty minutes following the injection, imaging of the heart was performed in multiple projections. For the rest portion of the study 10.6 mCi of technetium-99m Cardiolite was injected intravenously at 11:30 a.m. on the same day. One hour following injection, imaging of the heart was performed in the same projections. LEXISCAN ELECTROCARDIOGRAM: Baseline ECG demonstrated sinus rhythm with first degree AV block and left bundle branch block. Lexiscan ECG demonstrated no significant ST changes. There was no arrhythmia. There were no significant pauses. No Lexiscan induced symptoms were reported. Maximum heart rate was 116 beats per minute representing 75% maximum predicted heart rate. Resting blood pressure was 140/78 mmHg. Maximum blood pressure was 155/99 mmHg. FINDINGS: Rotating raw imaging demonstrated no significant motion artifact. There was no significant transient ischemic dilation. Heart size appeared normal. Myocardial perfusion demonstrated a large area of moderately reduced uptake in the inferolateral wall from base to apex, inferior wall from base to apex, and inferoseptum from base to distal left ventricle. This defect was fixed. There were no significant reversible defects noted. Ejection fraction calculated at 48%. Wall motion appeared normal. IMPRESSION: 1. No significant ischemic changes were suggested during this pharmacologic stress myocardial perfusion study. 2. Large right coronary artery territory fixed defect may represent attenuation artifact given normal wall motion. Cannot rule out infarct. 3. Mildly reduced left ventricular systolic function with an ejection fraction of 48%. 4. No regional wall motion abnormalities suggested. 5. No symptoms reported. 6. Indeterminate Lexiscan electrocardiogram due to left bundle branch block.
--- NOTE | 2016-12-08 16:50 | Discharge Summary ---
Discharge Summary Date of Service Dec 08, 2016. Discharge Summary Admission Date: December 03, 2016 at 02:49 Discharge Date: Dec 04, 2016 Discharge Disposition: Home Principal Diagnosis: LBBB, non ischemic, bronchitis, Lymph node left groin Immunizations: Have You Had Influenza Vaccine: Unknown History of Tetanus Vaccine?: utd History of Pneumococcal: Unknown History of Hepatitis B Vaccine: No Medication Reconciliation New Medications: Levofloxacin (Levaquin) 500 Mg Tab 500 MG PO DAILY, #8 DOSE Continued Medications: Albuterol (Proair Hfa) Aers 2 PUFF INH Q4 PRN for SOB/Wheezing Amlodipine (Norvasc) 5 Mg Tab 5 MG PO QAM, TAB Aspirin (Aspirin Ec) 81 Mg Tab 1 TAB PO DAILY Cetirizine Hcl (Zyrtec) 10 Mg Tab 10 MG PO DAILY, TAB Dextromethorphan-Guaifenesin (Mucinex Dm Maximum Streng) 1 Tab Tab 1 TAB PO BID for 15 Days, #30 TAB Fluticasone Propionate (Nasal) (Flonase) 50 Mcg/Act Spr 1 SPRAY NANDA QPM PRN for PRN Montelukast Sodium (Singulair) 10 Mg Tab 1 TAB PO DAILY for 90 Days, #90 TAB 1 Refill Multivitamin (Multivitamin) Tab 1 TAB PO QPM, TAB Discharge Exam Review of Systems: Constitutional: No fever, No chills Respiratory: + cough, No sputum Physical Exam: General Appearance: WD/WN, no apparent distress Neck: supple, no JVD Respiratory/Chest: chest non-tender, lungs clear, normal breath sounds Cardiovascular: regular rate, rhythm, no murmur Abdomen / GI: normal bowel sounds, non tender, soft Hospital Course Bronchitis and rate related LBBB Pt has no further chest pain, feels chest discomfort was from coughing is on antibiotics for same and feels improved after one dose of steroids noted LN on inguinal u/s and some minor changes on CTA eval for unstable angina with nuclear scan, this was negative for ischemia treat for bronchitis with reactive airway with antibiotics I personally called Dr Choi, in general surgery, who agreed to make follow up arrangements for a left groin LN biopsy, the patient understands he will be called for appointment in the following week Documented By: Justino Perkins Total Time Spent: Greater than 30 minutes This includes examination of the patient, discharge planning, medication reconciliation, and communication with other providers. Discharge Instructions Please refer to the electronic Patient Visit Report (Discharge Instructions) for additional information.
[2016-12-10] MEDS ORDERED: FLUT1AER5 INH (10:50)
[2016-12-10] MEDS ORDERED: LEVO1TAB33 PO (10:50)
--- NOTE | 2016-12-12 09:54 | EDITING REQUIRED CODING QUERY ---
SUPPORTING DIAGNOSIS NEEDED Dr. Snow, A supporting diagnosis is required for the test/procedure performed on this patient in order for us to be reimbursed by the patient's insurance. Please provide a supporting diagnosis for the following test/procedure listed below next to the test name along with your signature. *If there is no additional diagnosis for this patient that would support the following test/procedure please document that below next to the test/procedure. Test(s)/Procedure(s) that require a supporting diagnosis: * ([id number]) VENOUS DOPPLER LOWER EXT BILAT DIAGNOSIS: Elevated DDimer DATE OF SERVICE: 12/03/16 Provider Signature: Date: Thank you Adrian [facility] Information Management Once completed, please kindly fax back to [phone] For questions please call [phone]
[2016-12-17] MEDS ORDERED: FLUT0.15 (07:59)
[2016-12-17] MEDS ORDERED: MOME200A INH (07:59)
[2016-12-17] MEDS ORDERED: MULT-506 PO (07:59)
[2016-12-17] MEDS ORDERED: MOME100A INH (07:59)
[2016-12-17] MEDS ORDERED: CETI10TA84 PO (07:59)
[2016-12-17] MEDS ORDERED: HYDR-5688 PO (12:19)
== END 2016-12-04 17:45 | disposition home or self-care (01) | DRG 309 ==
LOC: C.2T 02:49
PROVIDERS: ADMIT Hospitalist; ATTEND Internal Medicine
DX: I44.7 Left bundle-branch block, unspecified (principal); J45.901 Unspecified asthma with (acute) exacerbation; I44.0 Atrioventricular block, first degree; I10 Essential (primary) hypertension; M06.9 Rheumatoid arthritis, unspecified; I49.1 Atrial premature depolarization; I49.3 Ventricular premature depolarization; R94.31 Abnormal electrocardiogram [ECG] [EKG]; E78.6 Lipoprotein deficiency; D72.1 Eosinophilia; R79.1 Abnormal coagulation profile; R73.09 Other abnormal glucose; E78.5 Hyperlipidemia, unspecified; Z96.651 Presence of right artificial knee joint; Z79.82 Long term (current) use of aspirin; Z86.79 Personal history of other diseases of the circulatory system; Z87.19 Personal history of other diseases of the digestive system; Z92.21 Personal history of antineoplastic chemotherapy; Z82.49 Family history of ischemic heart disease and other diseases of the circulatory system; Z79.51 Long term (current) use of inhaled steroids; Z85.72 Personal history of non-Hodgkin lymphomas; Z79.899 Other long term (current) drug therapy

== ENCOUNTER → 2016-12-17 | Day surgery (SDC) | payer BC, OTHER ==
[~2016-12-17] MED LIST changes: -ASPI81TA28 PO; +BUPIVACAINE/EPINEPHRINE 0.5% MPF 1:200,000 30 ML VIAL ONE; -CALC-206 PO; +DEXAMETHASONE SOD INJ 4 MG/ML VIAL ONE; +DEXT1TAB50 PO; -ECON0.05 TOP; +FENTANYL CITRATE INJ 50 MCG/1 ML 2 ML VIAL ONE; -FLUT0.0529 NAE; +FLUT0.15; +FLUT1AER5 INH; +GLYCOPYRROLATE INJ 0.2 MG/ML VIAL ONE; +HYDR-5688 PO; +HYDROCODONE/ACETAMOPHEN 5/325MG TAB ONE; +LEVO1TAB33 PO; +LIDOCAINE HCL 2% 2 ML VIAL (20MG/ML) ONE; +MIDAZOLAM HCL 1 MG/ML 2ML VIAL ONE; +MOME100A INH; +MOME200A INH; +MONT1TAB3 PO; +ONDANSETRON INJ 2 MG/ML 2 ML VIAL ONE; -PRED10TA PO; +PROPOFOL IV EMULSION 10 MG/ML 20 ML VIAL IV ONE; -RTXI500 IV
== END | disposition home or self-care (01) ==
LOC: C.ACU 07:27
PROVIDERS: ATTEND Surgery
DX: R59.1 Generalized enlarged lymph nodes (principal); C85.90 Non-Hodgkin lymphoma, unspecified, unspecified site

== ENCOUNTER → 2016-12-17 | Day surgery (SDC) | payer BC, OTHER ==
[2016-12-10 11:01] VITALS: Ht 180.3 cm; Wt 99.1 kg
[~2016-12-17] VITALS: Ht 180.3 cm; Wt 99.1 kg
[~2016-12-17] MED LIST changes: +ATROPINE SULFATE 0.1 MG/ML 5ML SYR IV PRN; +BUPIVACAINE/EPINEPHRINE 0.5% MPF 1:200,000 30 ML VIAL INFIL ONE; +BUPIVACAINE/EPINEPHRINE 0.5% MPF 1:200,000 30 ML VIAL INJ ONE; -BUPIVACAINE/EPINEPHRINE 0.5% MPF 1:200,000 30 ML VIAL ONE; +CEFAZOLIN 2000 MG/60 ML D5W IV SCH; +DEXAMETHASONE SOD INJ 4 MG/ML VIAL IV ONE; -DEXAMETHASONE SOD INJ 4 MG/ML VIAL ONE; +EpHEDrine SULFATE INJ 50 MG/ML AMP IV PRN; +FENTANYL CITRATE INJ 50 MCG/1 ML 2 ML VIAL IV ONE; -FENTANYL CITRATE INJ 50 MCG/1 ML 2 ML VIAL ONE; +FLUMAZENIL 0.1 MG/1 ML 10 ML VIAL IV PRN; +GLYCOPYRROLATE INJ 0.2 MG/ML VIAL IM ONE; -GLYCOPYRROLATE INJ 0.2 MG/ML VIAL ONE; -HYDROCODONE/ACETAMOPHEN 5/325MG TAB ONE; +HYDROCODONE/ACETAMOPHEN 5/325MG TAB PO ONE; +HYDROCODONE/ACETAMOPHEN 5/325MG TAB PO PRN; +HYDROmorphone INJ 1 MG/ML SYR IV PRN; +LABETALOL HCL IV 5 MG/ML 20ML IV PRN; +LACTATED RINGER'S 1000ML 1,000 ML IV SCH; +LIDOCAINE HCL 2% 2 ML VIAL (20MG/ML) INFIL ONE; -LIDOCAINE HCL 2% 2 ML VIAL (20MG/ML) ONE; +MIDAZOLAM HCL 1 MG/ML 2ML VIAL IV ONE; -MIDAZOLAM HCL 1 MG/ML 2ML VIAL ONE; +MoRPHine SULFATE 2 MG/ML CARP IV PRN; +NALOXONE HCL 0.4 MG/1 ML VIAL/CARP IV PRN; +ONDANSETRON INJ 2 MG/ML 2 ML VIAL IV ONE; +ONDANSETRON INJ 2 MG/ML 2 ML VIAL IV PRN; -ONDANSETRON INJ 2 MG/ML 2 ML VIAL ONE; +PROMETHAZINE HCL INJ 12.5 MG in SODIUM CHLORIDE 0.9% 50ML 50 ML IV PRN
[2016-12-17 09:27] VITALS: BP 148/79; PULSE 60; TEMP 36.9; O2SAT 96
--- NOTE | 2016-12-17 10:45 | History & Physical Bridge Note ---
H&P Re-Evaluation Bridge Note: I have examined the patient, reviewed the History & Physical and in the interval since the performance of the History & Physical I have noted the following changes of clinical significance: needle loc performed without issue. questions answered. ok to proceed.
--- NOTE | 2016-12-17 12:14 | DIAGNOSTIC IMAGING REPORT ---
ULTRASOUND GUIDED NEEDLE LOCALIZATION OF LEFT GROIN MASS CLINICAL HISTORY: Enlarged left inguinal lymph node. COMPARISON STUDY: Lower extremity venous Doppler Dec 03 2016. PROCEDURE: Sonography of the left groin demonstrated a 3.6 x 1.2 x 2 cm oval-shaped hypoechoic mass within the inferior left groin which corresponds the abnormality on ultrasound of December 03, 2016. This was targeted for localization. Procedure, risks and benefits were discussed with the patient and informed written consent was obtained. The procedure was performed by Dr. Cruz following a timeout. Skin was prepped and draped in sterile fashion and local anesthesia was achieved with 1% lidocaine. Under direct ultrasound guidance, a Pete II needle was directed through the lymph node. The needle was removed and the wire was left in place. Postprocedure ultrasound demonstrated the wire extending through the lymph node. The wire was secured to the skin. The patient tolerated the procedure well and no immediate complications were evident. IMPRESSION: Ultrasound guided wire localization of the inferior left inguinal lymph node. Electronically signed by: José Miguel Cruz M.D. 12/17/2016 9:41 AM Dictated Date/Time: 12/17/2016 9:39 AM
--- NOTE | 2016-12-17 12:24 | Discharge Instructions ---
Discharge Instructions Date of Service Dec 17, 2016. Visit Reason for Visit: Lymphadenopathy, Hx Of Lymphoma -Left Inguinal Lym Discharge Discharge Diagnosis / Problem: excision inguinal lymph node Discharge Goals Goal(s): Improve disease control Activity Recommendations Activity Limitations: as noted below Shower/Bathe: no limitations Driving or Machine Use: if not taking [place] Anesthesia . Post Anesthesia Instructions: If you have had General Anesthesia or IV Sedation: * Do not drive today. * Resume driving when surgeon permits. * Do not make important decisions or sign legal documents today. * Call surgeon for: 1. Temperature elevations greater than 101 degrees F. 2. Uncontrollable pain. 3. Excessive bleeding. 4. Persistent nausea and vomiting. 5. Medication intolerance (nausea, vomiting or rash). * For nausea and vomiting use only clear liquids such as: tea, soda, bouillon until nausea subsides, then gradually increase diet as tolerated. * If you have any concerns or questions, call your surgeon's office. If physician is unavailable and it is an emergency, call 911 or go to the nearest emergency room. . Instructions / Follow-Up Instructions / Follow-Up Dr. Choi as planned, call [phone] for any questions or concerns Diet Recommendations Recommended Home Diet: no limitations Pending Studies Studies pending at discharge: no Medical Emergencies . Who to Call and When: Medical Emergencies: If at any time you feel your situation is an emergency, please call 911 immediately. . Non-Emergent Contact Non-Emergency issues call your: Surgeon Call Non-Emergent contact if: you have a fever, temperature is above 101.5, your pain is not controlled, wound has increased redness, wound has increased pain . . "Provider Documentation" section prepared by Adrian Vital. .
--- NOTE | 2016-12-17 12:26 | [facility] Operative Report ---
Operative Report Operative Date Dec 17, 2016. Pre-Operative Diagnosis left inguinal enlarged lymph node Post-Operative Diagnosis same Procedure(s) Performed excisional bx left inguinal lymph node Surgeon Dr. Choi Usability Strategist Surgeon(s) Ruddy iVtal PA-C Estimated Blood Loss 2 cc Findings enlarged left inguinal lymph node Specimens A: Left inguinal lymph node Anesthesia LMA Complication(s) None Disposition Recovery Room / PACU I attest to the content of the Intraoperative Record and any orders documented therein. Any exceptions are noted below.
--- NOTE | 2016-12-17 12:50 | OPERATIVE REPORT ---
DATE OF OPERATION: 12/17/2016 PREOPERATIVE DIAGNOSIS: Left inguinal enlarged lymph node with a history of lymphoma. POSTOPERATIVE DIAGNOSIS: Same. PROCEDURE: Left inguinal incisional lymph node biopsy with needle localization. SURGEON: Dr. Choi. INDUSTRIAL MACHINERY MECHANIC: Ruddy Vital PA-C. ESTIMATED BLOOD LOSS: 5 mL. COMPLICATIONS: No immediate. ANESTHESIA: General with laryngeal mask airway. OPERATION AND FINDINGS: OPERATIVE NOTE: Prior to coming to the OR the patient was taken to radiology where he underwent an ultrasound guided needle placement through the lesion itself. He was then brought to the operating suite, placed in supine position. After successful placement of laryngeal mask airway left groin was sterilely prepped and draped in usual fashion. We made an incision right near the guidewire with a 10 blade scalpel and carried this down through the soft tissue using electrocautery. We created a skin flap. We slowly dissected down through subcutaneous tissue, following the guidewire until we encountered the mass. The mass was enlarged, although relatively superficial. We were able use a series of traction, counter traction and small amounts of electrocautery to dissect it away from surrounding tissues. Eventually we were able to get the entire thing out in 1 piece. It was sent to pathology. Wound was irrigated and several small bleeding points were controlled using electrocautery. We irrigated a final time and then used 3-0 Vicryl for deep layers and 4-0 Monocryl for the skin. Some 0.5% Marcaine with epinephrine was injected around the area for postoperative analgesia and a sterile dressing was applied. The patient was awakened, extubated, and transferred to recovery in stable condition. I attest to the content of the Intraoperative Record and any orders documented therein. Any exception s are noted below.
--- NOTE | 2016-12-17 13:03 | Anesthesiology Progress Note ---
Anesthesia Post Op Note Date & Time Dec 17, 2016 at 13:03 Vital Signs Pain Intensity: 3 Vital Signs Past 12 Hours Date Time Temp Pulse Resp B/P (MAP) Pulse Ox O2 Delivery O2 Flow Rate FiO2 12/17/16 12:55 72 18 143/92 94 Room Air 12/17/16 12:45 83 18 152/92 94 Room Air 12/17/16 12:35 89 18 138/89 96 Room Air 12/17/16 12:25 93 10 143/92 95 Mask 10 12/17/16 12:18 36.2 98 10 138/103 95 Mask 10 12/17/16 09:27 36.9 60 18 148/79 (102) 96 Room Air Notes Mental Status: alert / awake / arousable, participated in evaluation Pt Amnestic to Procedure: Yes Nausea / Vomiting: adequately controlled Pain: adequately controlled Airway Patency, RR, SpO2: stable & adequate BP & HR: stable & adequate Hydration State: stable & adequate Anesthetic Complications: no major complications apparent
[2016-12-17 13:05] VITALS: BP 145/81; PULSE 62; TEMP 36.7; O2SAT 62
[2016-12-17 13:35] VITALS: BP 150/76; O2SAT 63
[2016-12-17 14:05] VITALS: BP 163/81; PULSE 61; TEMP 36.7; O2SAT 96
== END | disposition home or self-care (01) ==
LOC: C.ACU 07:26
PROVIDERS: ATTEND Surgery
DX: C85.90 Non-Hodgkin lymphoma, unspecified, unspecified site (principal); R59.0 Localized enlarged lymph nodes; J45.909 Unspecified asthma, uncomplicated; I10 Essential (primary) hypertension; I48.0 Paroxysmal atrial fibrillation; M06.9 Rheumatoid arthritis, unspecified; E04.1 Nontoxic single thyroid nodule; Z82.49 Family history of ischemic heart disease and other diseases of the circulatory system; Z82.5 Family history of asthma and other chronic lower respiratory diseases; Z87.891 Personal history of nicotine dependence

== ENCOUNTER → 2017-03-20 | Outpatient (CLI) | payer BC ==
[~2017-03-20] MED LIST changes: -ATROPINE SULFATE 0.1 MG/ML 5ML SYR IV PRN; -BUPIVACAINE/EPINEPHRINE 0.5% MPF 1:200,000 30 ML VIAL INFIL ONE; -BUPIVACAINE/EPINEPHRINE 0.5% MPF 1:200,000 30 ML VIAL INJ ONE; -CEFAZOLIN 2000 MG/60 ML D5W IV SCH; -DEXAMETHASONE SOD INJ 4 MG/ML VIAL IV ONE; -EpHEDrine SULFATE INJ 50 MG/ML AMP IV PRN; -FENTANYL CITRATE INJ 50 MCG/1 ML 2 ML VIAL IV ONE; -FLUMAZENIL 0.1 MG/1 ML 10 ML VIAL IV PRN; -FLUT1AER5 INH; -GLYCOPYRROLATE INJ 0.2 MG/ML VIAL IM ONE; -HYDROCODONE/ACETAMOPHEN 5/325MG TAB PO ONE; -HYDROCODONE/ACETAMOPHEN 5/325MG TAB PO PRN; -HYDROmorphone INJ 1 MG/ML SYR IV PRN; -LABETALOL HCL IV 5 MG/ML 20ML IV PRN; -LACTATED RINGER'S 1000ML 1,000 ML IV SCH; -LEVO1TAB33 PO; -LIDOCAINE HCL 2% 2 ML VIAL (20MG/ML) INFIL ONE; -MIDAZOLAM HCL 1 MG/ML 2ML VIAL IV ONE; -MoRPHine SULFATE 2 MG/ML CARP IV PRN; -NALOXONE HCL 0.4 MG/1 ML VIAL/CARP IV PRN; -ONDANSETRON INJ 2 MG/ML 2 ML VIAL IV ONE; -ONDANSETRON INJ 2 MG/ML 2 ML VIAL IV PRN; -PROMETHAZINE HCL INJ 12.5 MG in SODIUM CHLORIDE 0.9% 50ML 50 ML IV PRN; -PROPOFOL IV EMULSION 10 MG/ML 20 ML VIAL IV ONE
--- NOTE | 2017-03-20 12:54 | DIAGNOSTIC IMAGING REPORT ---
RIGHT AXILLARY ULTRASOUND CLINICAL HISTORY: Right axillary soreness. Recurrent non-Hodgkin's lymphoma. COMPARISON STUDY: Right axillary ultrasound October 09, [address] December 03, 2016. FINDINGS: Several mildly enlarged right axillary lymph nodes are similar to chest CT of December 03, 2016. Index right axillary lymph node measures 1.8 x 1.7 x 1.1 cm. IMPRESSION: No change in mild right axillary lymphadenopathy since chest CT December 03, 2016. Electronically signed by: José Miguel Cruz M.D. 03/20/2017 12:53 PM Dictated Date/Time: 03/20/2017 12:49 PM
== END | disposition home or self-care (01) ==
LOC: C.ULTRBC 12:14
PROVIDERS: ATTEND Physician Assistant Medical
DX: C85.90 Non-Hodgkin lymphoma, unspecified, unspecified site (principal); R59.0 Localized enlarged lymph nodes

== ENCOUNTER → 2017-05-11 | Outpatient (CLI) | payer BC ==
[2017-05-11 17:09] LABS: BASO % 0.4 %; BASO ABS # 0.04 K/uL (0-0.2); COMPLETE YES; EOS % 2.1 %; HEMATOCRIT 44.5 % (42-52); LYMPH % 13.5 %; LYMPH ABS # 1.29 K/uL (1.2-3.4); MEAN CELL VOLUME 93.9 fL (80-100); MEAN CORPUSCULAR HEMOGLOBIN 32.1 pg (25-34); MEAN CORPUSCULAR HGB CONC 34.2 g/dl (32-36); MEAN PLATELET VOLUME 9.5 fL (7.4-10.4); MONO % 6.7 %; NEUT % 76.3 %; PLATELET COUNT 176 K/uL (130-400); RED BLOOD COUNT 4.74 M/uL (4.7-6.1); WHITE BLOOD COUNT 9.55 K/uL (4.8-10.8)
[2017-05-11 17:17] LABS: BLOOD UREA NITROGEN 14 mg/dl (7-18); BUN/CREATININE RATIO 13.9 (10-20); CALCIUM 9.1 mg/dl (8.5-10.1); CARBON DIOXIDE 29 mmol/L (21-32); CHLORIDE 106 mmol/L (98-107); GLUCOSE 104 mg/dl (70-99); POTASSIUM 4.1 mmol/L (3.5-5.1); SODIUM 140 mmol/L (136-145)
[2017-05-11 17:22] LABS: URINE APPEARANCE CLEAR (CLEAR); URINE BILIRUBIN NEG (NEG); URINE COLOR YELLOW; URINE EPITHELIAL CELL AUTO 0-5 /lpf (0-5); URINE NITRITE NEG (NEG); URINE PH 5.5 (4.5-7.5); UROBILINOGEN NEG (NEG)
[2017-05-11 17:25] LABS: MANUAL MICROSCOPIC REQUIRED? NO; REVIEW REQ? YES
== END | disposition home or self-care (01) ==
LOC: C.LABBC 12:31
PROVIDERS: ATTEND Physician Assistant Medical
DX: R30.0 Dysuria (principal); J45.909 Unspecified asthma, uncomplicated; R59.0 Localized enlarged lymph nodes

== ENCOUNTER 2017-09-30 16:45 | Inpatient (IN) | payer BC, OTHER ==
[~2017-09-30] VITALS: Ht 180.3 cm; Wt 97.9 kg
[~2017-09-30 16:45] MED LIST changes: -ASPEC81 PO; -CRG625 PO; -LPR25 PO; -LPT40 PO; -LSN25 PO; -RANI150T85 PO
[2017-09-30 17:09] VITALS: Ht 180.3 cm; Wt 97.9 kg
[2017-09-30] MEDS ORDERED: ASPIRIN 81 MG CHEW ONE (17:36)
[2017-09-30] MEDS ORDERED: NITROGLYCERIN 0.4 MG SL PER TAB CHARGE ONE (17:38)
[2017-09-30] MEDS ORDERED: NITROGLYCERIN 2% OINTMENT 30GM TUBE EXT ONE (17:46)
[2017-09-30 18:09] LABS: ISTAT IONIZED CALCIUM 1.21 mmol/l (1.12-1.32); ISTAT POTASSIUM 3.8 mEq/L (3.3-5.0)
[2017-09-30 18:20] LABS: BASO % 0.6 %; BASO ABS # 0.04 K/uL (0-0.2); EOS % 6.1 %; EOS ABS # 0.44 K/uL (0-0.5); HEMATOCRIT 42.3 % (42-52); HEMOGLOBIN 14.9 g/dL (14.0-18.0); IG# 0.02 K/uL (0.00-0.02); LYMPH % 20.1 %; LYMPH ABS # 1.45 K/uL (1.2-3.4); MEAN CORPUSCULAR HEMOGLOBIN 31.7 pg (25-34); MEAN CORPUSCULAR HGB CONC 35.2 g/dl (32-36); MEAN PLATELET VOLUME 9.7 fL (7.4-10.4); MONO % 9.4 %; MONO ABS # 0.68 K/uL (0.11-0.59); NEUT % 63.5 %; NEUT ABS # 4.58 K/uL (1.4-6.5); PLATELET COUNT 172 K/uL (130-400); RED CELL DISTRIBUTION WIDTH CV 13.3 % (11.5-14.5); RED CELL DISTRIBUTION WIDTH SD 43.8 fL (36.4-46.3); WHITE BLOOD COUNT 7.21 K/uL (4.8-10.8)
--- NOTE | 2017-09-30 18:25 | DIAGNOSTIC IMAGING REPORT ---
CHEST ONE VIEW PORTABLE CLINICAL HISTORY: RACING HEART, ABNORMAL EKG cardiac arrhythmia COMPARISON STUDY: No previous studies for comparison. FINDINGS: The bones soft tissues and hemidiaphragms are normal. The cardiomediastinal silhouette is normal. The lungs are clear. The pulmonary vasculature is normal. IMPRESSION: Negative chest. The above report was generated using voice recognition software. It may contain grammatical, syntax or spelling errors. Electronically signed by: Geremias Jules M.D. 09/30/2017 6:24 PM Dictated Date/Time: 09/30/2017 6:22 PM
[2017-09-30 18:50] LABS: ALBUMIN 3.9 gm/dl (3.4-5.0); ALKALINE PHOSPHATASE 60 U/L (45-117); ALT/SGPT 44 U/L (12-78); AST/SGOT 42 U/L (15-37); BLOOD UREA NITROGEN 17 mg/dl (7-18); CALCIUM 9.2 mg/dl (8.5-10.1); CARBON DIOXIDE 27 mmol/L (21-32); CKMB 3.9 ng/ml (0.5-3.6); CREATININE 0.98 mg/dl (0.60-1.40); GLUCOSE 79 mg/dl (70-99); LIPASE 285 U/L (73-393); POTASSIUM 3.8 mmol/L (3.5-5.1); SODIUM 139 mmol/L (136-145); TOTAL PROTEIN 7.3 gm/dl (6.4-8.2)
[2017-09-30] MEDS: HEPARIN 25,000 UNIT/500ML D5W 500 ML IV SCH (20:15)
[2017-09-30] MEDS ORDERED: HEPARIN IV BOLUS 7,000 UNIT in SYRINGE 0 ML IV ONE (20:15)
[2017-09-30] MEDS ORDERED: HEPARIN 25000 UNIT/500 ML D5W ONE (20:18)
[2017-09-30] MEDS ORDERED: HEPARIN SOD 5000 UNIT/0.5 ML CARP ONE (20:18)
[2017-09-30 21:52] LABS: PTT PATIENT 24.5 SECONDS (21.0-31.0)
[2017-09-30] MEDS ORDERED: ALBUTEROL HFA INHALER 8.5 GM INH PRN (22:00)
[2017-09-30] MEDS ORDERED: NITROGLYCERIN 0.4 MG SL PER TAB CHARGE SL PRN (22:00)
[2017-09-30 23:07] VITALS: BP 114/63; PULSE 61; TEMP 36.6; O2SAT 95
--- NOTE | 2017-09-30 23:09 | EMERGENCY ROOM VISIT NOTE ---
History Report prepared by Guillermina: Fe Hooks Under the Supervision of: Dr. Otilio Cheema M.D. First contact with patient: 17:16 Chief Complaint: REFERRED BY DOCTOR Stated Complaint: CHEST PAIN, LBBB History of Present Illness The patient is a 67 year old male who presents to the Emergency Room with complaints of intermittent episodes of chest pain that has been going on for several weeks. He reports that he has been vacationing in [place] with his for the past 3 months, noting that during his trip he has been experiencing episodes of chest discomfort which he describes as a hollow feeling. He denies having a stress test in [place], noting his last one was in 2017. The patient went to the Emergency Department while there, noting that they told him he had an abnormal EKG. He notes that he followed up with a animal scientist in [place], who also confirmed his abnormal EKG findings. The patient is now following up with Gayathri Zuñiga, who told him that his EKG findings were different but still abnormal. He reports that he has been taking baby Aspirin, noting that he took one today. 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 He reports that he has experienced similar symptoms in the past. Source of History: patient Onset: several weeks Position: chest Quality: other (chest pain episodes) Timing: intermittent, other Modifying Factors (Worsening): other (strenous work) Note: Associated symptoms include: "hollow feeling" and abnormal EKG. Review of Systems See HPI for pertinent positives & negatives. A total of 10 systems reviewed and were otherwise negative. Past Medical & Surgical Medical Problems: (1) Asthma, Unspecified (2) Bronchitis (3) Diab Diamante Wo Compl, Type Ii Or Unspec Type, Uncontrolled (4) Elevated d-dimer (5) Hyperlipidemia Nec/Nos (6) Hypertension Nos (7) Lymph node enlargement (8) Lymphoma (9) New onset left bundle branch block (LBBB) (10) Rheumatoid Arthritis (11) Sinusitis (12) Sinusitis Family History FHx: cancer Social History Smoking Status: Never Smoker Drug Use: none Marital Status: Housing Status: lives with family Occupation Status: employed Current/Historical Medications Scheduled Aspirin (Aspirin EC Low Dose), 81 MG PO DAILY Cetirizine (Zyrtec), 10 MG PO DAILY Dextromethorphan-Guaifenesin (Mucinex Dm Maximum Streng), 1 TAB PO BID Fluticasone Propionate (Nasal) (Flonase Allergy Relief), 2 SPRAYS DAILY Metoprolol Tartrate (Lopressor), 25 MG PO BID Mometasone Furoate-Formoterol (Dulera 100/5 Mcg), 2 PUFFS INH BID Mometasone Furoate-Formoterol (Dulera 200/5 Mcg), 2 PUFFS INH BID Montelukast Sodium (Singulair), 1 TAB PO HS Multivitamin (Multivitamin), 1 TAB PO QPM Multivitamin (Multivitamin), 1 TAB PO DAILY Ranitidine (Zantac), 1 TAB PO HS Scheduled PRN Albuterol (Proair Hfa), 2 PUFF INH Q4 PRN for SOB/Wheezing Allergies Coded Allergies: Metronidazole (Verified Allergy, Severe, HIVES AND SHORTNESS OF BREATH, ) Sulfa Antibiotics (Verified Allergy, Intermediate, HIVES, GI UPSET, ) Physical Exam Vital Signs Date Time Temp Pulse Resp B/P (MAP) Pulse Ox O2 Delivery O2 Flow Rate FiO2 09/30/17 17:09 36.9 63 20 147/79 98 Room Air Physical Exam GENERAL: Awake, alert, well-appearing, in no acute distress HENT: Normocephalic, atraumatic. Oropharynx unremarkable. EYES: Normal conjunctiva. Sclera non-icteric. NECK: Supple. No nuchal rigidity. FROM. No JVD. RESPIRATORY: Clear to auscultation. CARDIAC: Regular rate, normal rhythm. Extremities warm and well perfused. Pulses equal. ABDOMEN: Soft, non-distended. No tenderness to palpation. No rebound or guarding. No masses. RECTAL: Deferred. MUSCULOSKELETAL: Chest examination reveals no tenderness. The back is symmetrical on inspection without obvious abnormality. There is no CVA tenderness to palpation. No joint edema. LOWER EXTREMITIES: Calves are equal size bilaterally and non-tender. No edema. No discoloration. NEURO: Normal sensorium. No sensory or motor deficits noted. SKIN: No rash or jaundice noted. Medical Decision & Procedures ER Provider Diagnostic Interpretation: Radiology results as stated below per my review and radiologist interpretation: CHEST ONE VIEW PORTABLE CLINICAL HISTORY: RACING HEART, ABNORMAL EKG cardiac arrhythmia COMPARISON STUDY: No previous studies for comparison. FINDINGS: The bones soft tissues and hemidiaphragms are normal. The cardiomediastinal silhouette is normal. The lungs are clear. The pulmonary vasculature is normal. IMPRESSION: Negative chest. The above report was generated using voice recognition software. It may contain grammatical, syntax or spelling errors. Electronically signed by: Geremias Jules M.D. 09/30/2017 6:24 PM Dictated Date/Time: 09/30/2017 6:22 PM Chest x-ray interpreted by me: No evidence of pneumonia, congestion, or pneumothorax. Laboratory Results 09/30/17 17:40 Red Blood Count 4.70, Mean Corpuscular Volume 90.0, Mean Corpuscular Hemoglobin 31.7, Mean Corpuscular Hemoglobin Concent 35.2, Mean Platelet Volume 9.7, Neutrophils (%) (Auto) 63.5, Lymphocytes (%) (Auto) 20.1, Monocytes (%) (Auto) 9.4, Eosinophils (%) (Auto) 6.1, Basophils (%) (Auto) 0.6, Neutrophils # (Auto) 4.58, Lymphocytes # (Auto) 1.45, Monocytes # (Auto) 0.68, Eosinophils # (Auto) 0.44, Basophils # (Auto) 0.04 09/30/17 17:40 Test 09/30/17 17:40 09/30/17 17:49 White Blood Count 7.21 K/uL (4.8-10.8) Red Blood Count 4.70 M/uL (4.7-6.1) Hemoglobin 14.9 g/dL (14.0-18.0) Hematocrit 42.3 % (42-52) Mean Corpuscular Volume 90.0 fL (80-100) Mean Corpuscular Hemoglobin 31.7 pg (25-34) Mean Corpuscular Hemoglobin Concent 35.2 g/dl (32-36) Platelet Count 172 K/uL (130-400) Mean Platelet Volume 9.7 fL (7.4-10.4) Neutrophils (%) (Auto) 63.5 % Lymphocytes (%) (Auto) 20.1 % Monocytes (%) (Auto) 9.4 % Eosinophils (%) (Auto) 6.1 % Basophils (%) (Auto) 0.6 % Neutrophils # (Auto) 4.58 K/uL (1.4-6.5) Lymphocytes # (Auto) 1.45 K/uL (1.2-3.4) Monocytes # (Auto) 0.68 K/uL (0.11-0.59) Eosinophils # (Auto) 0.44 K/uL (0-0.5) Basophils # (Auto) 0.04 K/uL (0-0.2) RDW Standard Deviation 43.8 fL (36.4-46.3) RDW Coefficient of Variation 13.3 % (11.5-14.5) Immature Granulocyte % (Auto) 0.3 % Immature Granulocyte # (Auto) 0.02 K/uL (0.00-0.02) Prothrombin Time 10.5 SECONDS (9.0-12.0) Prothromb Time International Ratio 1.0 (0.9-1.1) D-Dimer 400 ug/L FEU (0-500) Estimated GFR () 92.1 Estimated GFR (Non- 79.5 BUN/Creatinine Ratio 16.8 (10-20) Calcium Level 9.2 mg/dl (8.5-10.1) Total Bilirubin 0.7 mg/dl (0.2-1) Direct Bilirubin 0.3 mg/dl (0-0.2) Aspartate Amino Transf (AST/SGOT) 42 U/L (15-37) Alanine Aminotransferase (ALT/SGPT) 44 U/L (12-78) Alkaline Phosphatase 60 U/L (45-117) Total Creatine Kinase 254 U/L (39-308) Creatine Kinase MB 3.9 ng/ml (0.5-3.6) Creatine Kinase MB Ratio 1.5 (0-3.0) Total Protein 7.3 gm/dl (6.4-8.2) Albumin 3.9 gm/dl (3.4-5.0) Globulin 3.4 gm/dl (2.5-4.0) Albumin/Globulin Ratio 1.2 (0.9-2) Lipase 285 U/L (73-393) Chemistry Specimen Hemolysis Bedside Hemoglobin 14.6 g/dl (14.0-18.0) Bedside Hematocrit 43 % (42-52) Bedside Sodium 142 mEq/L (135-144) Bedside Potassium 3.8 mEq/L (3.3-5.0) Bedside Chloride 104 mEq/L (101-112) Bedside Total CO2 27 mEq/l (24-31) Anion Gap 15.0 mmol/L (16-25) Bedside Blood Urea Nitrogen 16 mg/dl (7-18) Bedside Creatinine 1.0 mg/dl (0.6-1.3) Bedside Glucose (other) 85 mg/dl (70-99) Bedside Ionized Calcium (Frida) 1.21 mmol/l (1.12-1.32) Labs reviewed by ED physician. ECG Per My Interpretation Indication: chest pain Rate (beats per minute): 54 Rhythm: sinus bradycardia Findings: PVC, T-wave inversion (Anterior), other (No ST elevaton or depression. ) Change: 2nd EKG: sinus bradycardia with LBBB, 55, no ST elevation or depression ED Course 171: Past medical records reviewed. The patient was evaluated in room A3. A complete history and physical examination was performed. 1736: Ordered Aspirin 324mg. 173: Ordered Nitroglycerin 1.2mg. 174: Ordered Nitroglycerin 18inch. 174: I discussed the patient's case with Dr. Allan, [facility] cardiology. He has agreed to evaluate the patient for further management and care. 180: I discussed the patient's case with Dr. Navarro, [facility] hospitalist. He has agreed to admit the patient. 180: I reevaluated the patient, who was resting. I updated him on test findings and the treatment plan. The patient verbalized understanding and agreement. Medical Decision Differential diagnosis: Etiologies such as cardiac ischemia, aortic dissection, pulmonary embolism, pneumonia, pneumothorax, musculoskeletal, infections, pericarditis, myocarditis , esophageal rupture, gastrointestinal, as well as others were entertained. This is a 67-year-old male who was sent in by his primary care physician during an unscheduled [facility] downtime over concerns that the patient has been having chest pain for the past 2 weeks. Anytime the patient exerts himself he feels that he gets chest pain. In the emergency department the patient had serial EKGs performed. The patient jumps in and out of a left bundle branch block. For this reason I did discuss the case with the animal scientist who asked that the patient be admitted to the medicine service and made n.p.o. after midnight. He was given aspirin in the emergency department along with nitro. The nitro resulted in the patient's symptoms resolving. I do feel that the patient is well enough to be discharged home. Patient was in agreement with the treatment plan. Medication Reconcilliation Current Medication List: was personally reviewed by me Blood Pressure Screening Patient's blood pressure: Normal blood pressure Blood pressure disposition: Did not require urgent referral Consults Time Called: 1729 Consulting Physician: GOLDIE Sheridan cardiology Returned Call: [phone] I discussed the patient's case with GOLDIE Sheridan Dr. cardiology. He has agreed to evaluate the patient for further management and care. Additional Consults: Time Called: 180 Consulted Physician: GOLDIE Falk hospitalist Returned Call: [phone] Additional Comments: I discussed the patient's case with GOLDIE Falk hospitalist. He has agreed to admit the patient. Impression Primary Impression: Chest pain Scribe Attestation The scribe's documentation has been prepared under my direction and personally reviewed by me in its entirety. I confirm that the note above accurately reflects all work, treatment, procedures, and medical decision making performed by me. Departure Information Dispostion Being Evaluated By Hospitalist Referrals Ilya Rubio M.D. (PCP) Forms HOME CARE DOCUMENTATION FORM, IMPORTANT VISIT INFORMATION, WORK / SCHOOL INSTRUCTIONS Patient Instructions My [facility] Problem Qualifiers Primary Impression: Chest pain Chest pain type: unspecified Qualified Codes: R07.9 - Chest pain, unspecified
[2017-10-01 03:17] LABS: CHOLESTEROL 83 mg/dl (0-200); LDL CHOLESTEROL CALCULATED 17 mg/dl; PTT PATIENT 95.6 SECONDS (21.0-31.0)
[2017-10-01 03:23] VITALS: BP 107/56; PULSE 57; TEMP 36.7; O2SAT 94
[2017-10-01] MEDS: HEPARIN 25,000 UNIT/500ML D5W 500 ML IV SCH (04:20)
[2017-10-01 06:40] LABS: HEMOGLOBIN A1C 5.7 % (4.5-5.6)
--- NOTE | 2017-10-01 07:08 | DIAGNOSTIC IMAGING REPORT ---
(CHEST FOR PE) ANGIO WITH CT DOSE: HISTORY: Chest pain. Dyspnea. CHEST FOR PE , DOWNTIME TECHNIQUE: Multiaxial CT images of the chest were performed following the intravenous administration of contrast to evaluate the pulmonary arteries. Maximal intensity projection images were also obtained. A dose lowering technique was utilized adhering to the principles of ALARA. COMPARISON STUDY: 12/03/2016 FINDINGS: The thoracic aorta is normal in course and caliber. Pulmonary vasculature enhances appropriately. There are no significant filling defects. Interval development of bilateral axillary adenopathy. Nodes measure up to 1.5 cm on the left and 1.8 cm on the right. Small bilateral pleural effusions. No significant mediastinal or hilar adenopathy. IMPRESSION: 1. No evidence of pulmonary embolus. 2. Interval development of bilateral axillary adenopathy suspicious for recurrent lymphoma. 3. The lungs are considered clear. The above report was generated using voice recognition software. It may contain grammatical, syntax or spelling errors. Electronically signed by: Geremias Jules M.D. 10/01/2017 7:06 AM Dictated Date/Time: 10/01/2017 7:03 AM
[2017-10-01 07:24] VITALS: BP 114/69; PULSE 74; TEMP 36.5; O2SAT 97
[2017-10-01] MEDS ORDERED: ACETAMINOPHEN 325 MG TAB ONE (08:08)
[2017-10-01] MEDS: ASPIRIN 81 MG ECTAB PO SCH (08:13)
[2017-10-01] MEDS ORDERED: NURSING VERBAL MED ORDER ONE ×3 (08:15→13:00)
[2017-10-01] MEDS ORDERED: METOPROLOL TARTRATE 25 MG TAB PO SCH (09:00)
[2017-10-01] MEDS ORDERED: ACETAMINOPHEN 325 MG TAB PO PRN (09:15)
--- NOTE | 2017-10-01 11:16 | ECHOCARDIOGRAM REPORT ---
*NOTICE TO RECEIVING REPUBLICAN AGENCY This information is strictly Confidential and protected under [place] law. [place] law prohibits you from making any further disclosure of this information unless further disclosure is expressly permitted by the written consent of the person to whom it pertains or is authorized by law. A general authorization for the release of medical or other information is not sufficient for this purpose. Hospital accepts no responsibility if the information is made available to any other person, INCLUDING THE PATIENT. Interpretation Summary * Name: JIMBO XIAO Study Date: 10/01/2017 09:16 AM BP: 114/69 mmHg * Patient Location: C.2T\S\S240\S\1 HR: 52 * : 1950 (M/d/yyyy) Gender: Male Height: 71 in * Age: 67 yrs Ethnicity: CA Weight: 222 lb * Ordering Physician: Pat Trujillo * Referring Physician: Self, Referred * Performed By: Yarelis Garcia RDCS * * Reason For Study: CHF * BSA: 2.2 m2 * -- Conclusions -- * There is mild concentric left ventricular hypertrophy. * Left ventricular systolic function is moderate to severely reduced. * Grade I diastolic dysfunction, (abnormal relaxation pattern). * There is mild to moderate mitral regurgitation. * Right ventricular systolic pressure is normal. * Compared to an echocardiogram from 12/03/2016, there has been a significant change in the LV systolic function. Procedure Details * A contrast injection of Definity was performed to improve assessment of LV function. * Contrast was injected into an intravenous site in the left arm. * One vial of Definity ultrasound contrast was diluted in normal saline to a total volume of 10 ml. A total of '1' ml of solution was administered during imaging. * Lot # [id number] of Definity utilized for procedure. * Expiration date OCT 22. * The attending nurse who injected the contrast agent was DOUG Yip RN. Left Ventricle * The left ventricle is grossly normal size. * There is mild concentric left ventricular hypertrophy. * Ejection Fraction = 25-30%. * Left ventricular systolic function is moderate to severely reduced. * Grade I diastolic dysfunction, (abnormal relaxation pattern). * There is moderate to severe global hypokinesis with worse functioning of the inferior wall and dyskinesis of the septum Right Ventricle * The right ventricle is normal in size and function. * The right ventricular systolic function is normal as assessed by tricuspid annular plane systolic excursion (TAPSE) (normal >1.5 cm). Atria * The left atrial size is normal. * Right atrial size is normal. Mitral Valve * The mitral valve anatomy is normal. * There is mild to moderate mitral regurgitation. Tricuspid Valve * The tricuspid valve is not well visualized, but is grossly normal. * There is mild tricuspid regurgitation. * Right ventricular systolic pressure is normal. Aortic Valve * The aortic valve is normal in structure and function. * The aortic valve is trileaflet. * No hemodynamically significant valvular aortic stenosis. * Trace aortic regurgitation. Pulmonic Valve * The pulmonic valve is not well visualized. Great Vessels * The aortic root is normal size. Pericardium/Pleural * There is no pericardial effusion. MMode 2D Measurements and Calculations IVSd 1.3 cm IVSs 1.6 cm LVIDd 4.4 cm LVIDs 3.5 cm LVPWd 1.5 cm LVPWs 1.7 cm IVS/LVPW 0.86 FS 21.0 % EDV(Teich) 89.9 ml ESV(Teich) 51.3 ml EF(Teich) 43.0 % EDV(cubed) 88.0 ml ESV(cubed) 43.3 ml EF(cubed) 50.7 % % IVS thick 23.9 % % LVPW thick 15.9 % LV mass(C)d 235.8 grams LV mass(C)dI 106.9 grams/m\S\2 LV mass(C)s 224.2 grams LV mass(C)sI 101.7 grams/m\S\2 SV(Teich) 38.6 ml SI(Teich) 17.5 ml/m\S\2 SV(cubed) 44.7 ml SI(cubed) 20.3 ml/m\S\2 Ao root diam 3.6 cm Ao root area 10.2 cm\S\2 LVAd ap4 50.6 cm\S\2 LVLd ap4 10.1 cm EDV(MOD-sp4) 203.1 ml EDV(sp4-el) 214.8 ml LVAs ap4 34.4 cm\S\2 LVLs ap4 8.2 cm ESV(MOD-sp4) 115.3 ml ESV(sp4-el) 123.0 ml EF(MOD-sp4) 43.2 % EF(sp4-el) 42.7 % LVAd ap2 38.5 cm\S\2 LVLd ap2 9.2 cm EDV(MOD-sp2) 126.4 ml EDV(sp2-el) 135.9 ml LVAs ap2 28.3 cm\S\2 LVLs ap2 8.6 cm ESV(MOD-sp2) 76.7 ml ESV(sp2-el) 79.3 ml EF(MOD-sp2) 39.3 % EF(sp2-el) 41.6 % LVLd %diff -9.40 % EDV(MOD-bp) 167.3 ml LVLs %diff 4.6 % ESV(MOD-bp) 95.8 ml EF(MOD-bp) 42.7 % SV(MOD-sp4) 87.8 ml SI(MOD-sp4) 39.8 ml/m\S\2 SV(MOD-sp2) 49.7 ml SI(MOD-sp2) 22.5 ml/m\S\2 SV(MOD-bp) 71.5 ml SI(MOD-bp) 32.4 ml/m\S\2 SV(sp4-el) 91.8 ml SI(sp4-el) 41.6 ml/m\S\2 SV(sp2-el) 56.6 ml SI(sp2-el) 25.7 ml/m\S\2 Doppler Measurements and Calculations MV E max sheri 53.1 cm/sec MV A max sheri 93.6 cm/sec MV E/A 0.57 MV dec time 0.29 sec Ao V2 max 113.9 cm/sec Ao max PG 5.2 mmHg Ao max PG (full) 3.2 mmHg AI max sheri 460.2 cm/sec AI max PG 84.7 mmHg AI dec slope 191.1 cm/sec\S\2 AI P1/2t 705.2 msec LV V1 max PG 2.0 mmHg LV V1 max 70.3 cm/sec TR max sheri 215.4 cm/sec
[2017-10-01 11:42] VITALS: BP 131/69; PULSE 57; TEMP 36.6; O2SAT 97
[2017-10-01] MEDS ORDERED: ACETAMINOPHEN 325 MG TAB PO SCH (14:00)
--- NOTE | 2017-10-01 14:01 | Cardiology Consultation ---
Cardiology Consultation Date of Consultation: Oct 01, 2017. Requesting Physician: Pat Trujillo Reason for Consultation: Chest discomfort, LBBB Pt evaluation today including: conversation w/ patient, conversation w/ family , physical exam, lab review, review of studies, review of inpatient medication list History of Present Illness This is a 67-year-old gentleman who has a history of asthma, SVT (identified on October 27, 2015) and some degree of left ventricular dysfunction. He did have a catheterization at [facility] in 2008, that report notes that he had normal coronary arteries and normal left ventricular systolic function. Echocardiography elsewhere in October 2015 showed mild left ventricular dysfunction and a nuclear study at that time without ischemia. Electrocardiography on October 27, 2015 showed SVT at a rate of 138 bpm which I believe was felt to be atrial fibrillation or flutter but I can't be sure. He then presented with respiratory type symptoms in November 2016, had a left bundle branch block identified and was referred here for evaluation. Here for the most part he did not have a left bundle branch block pattern however at high heart rates he does, he probably had a rate related left bundle pattern. An echocardiogram on December 03, 2016 showed normal left ventricular size and function , a nuclear stress test on December 04, 2016 was negative for ischemia I reviewed the tracings and he did have left bundle branch block throughout this test. He recently got back from [place], there he had an episode of his heart racing, went to the emergency room and was observed to have a wide-complex tachycardia at 145 bpm (left bundle branch block). I believe he was given diltiazem and converted to sinus rhythm, unfortunately I do not see rhythm strips with variable AV block or the conversion I do not know if this was SVT or atrial flutter, it seems that opinions were varied in [place]. I believe he was started on metoprolol, he tells me he felt terrible on it, but is no longer on it. He now presents with periods of chest discomfort which has been occurring for several weeks coupled with a history of exertional chest discomfort was shoveling snow over the winter which sounds as though it could be anginal. Evaluation here includes electrocardiography which shows a left bundle branch block pattern (of note following a pause after a premature ventricular beat the complex is narrower, although perhaps not normal, consistent with this being rate related) as well as echocardiography which shows a decrease in left ventricular function with ejection fraction felt to be 25-30% now. Cardiac enzymes have been negative. Chest x-ray is unremarkable. At the time of my evaluation he is feeling well, he is having no further chest discomfort and no other cardiovascular complaints. Past Medical/Surgical History (1) Asthma, Unspecified (2) Diab Diamante Wo Compl, Type Ii Or Unspec Type, Uncontrolled (3) Hyperlipidemia Nec/Nos (4) Hypertension Nos (5) Sinusitis (6) Bronchitis Family History FHx: cancer Social History Smoking Status: Never Smoker History of Alcohol Use: Yes (social use, up to 6-pack beer per week) Review of Systems Constitutional: No fever, No weight loss, No weakness Respiratory: No cough, No wheezing, No shortness of breath, No dyspnea on exertion Cardiac: + see HPI, + chest pain, No orthopnea, No PND, No edema, No palpitations Abdomen: No pain, No nausea, No vomiting, No diarrhea, No GI bleeding Male : No urinary frequency, No nocturia more than once/night, No slowing stream, No sexual dysfunction Neurologic: No paralysis, No weakness, No numbness/tingling, No balance problems Heme: No abnormal bleeding/bruising, No clotting problems Endo: No fatigue Skin: No problem reported All Other Systems: Reviewed and Negative Allergies Coded Allergies: Metronidazole (Verified Allergy, Severe, HIVES AND SHORTNESS OF BREATH, ) Sulfa Antibiotics (Verified Allergy, Intermediate, HIVES, GI UPSET, ) Medications Current Inpatient Medications Medications (Trade) Dose Ordered Sig/Damon Route Start Time Stop Time Status Last Admin Dose Admin Nitroglycerin (Nitrostat Tab) 0.4 mg UD PRN SL 09/30/17 22:00 10/30/17 21:59 Aspirin (Ecotrin Tab) 81 mg QAM PO 10/01/17 09:00 10/31/17 08:59 10/01/17 08:13 81 MG Metoprolol Tartrate (Lopressor Tab) 25 mg BID PO 10/01/17 09:00 10/31/17 08:59 10/01/17 08:13 25 MG Atorvastatin Calcium (Lipitor Tab) 40 mg HS PO 10/01/17 21:00 10/31/17 20:59 Ranitidine HCl (zANTac TAB) 150 mg HS PO 10/01/17 21:00 10/31/17 20:59 Albuterol (Proair Hfa) 2 puffs Q4H PRN INH 09/30/17 22:00 10/30/17 21:59 Acetaminophen (Tylenol Tab) 650 mg Q6H PRN PO 10/01/17 09:15 10/31/17 09:14 Physical Exam Vital Signs Past 12 Hours Date Time Temp Pulse Resp B/P (MAP) Pulse Ox O2 Delivery O2 Flow Rate FiO2 10/01/17 12:00 Room Air 10/01/17 11:42 36.6 57 16 131/69 (89) 97 10/01/17 08:00 Room Air 10/01/17 07:24 36.5 74 18 114/69 (84) 97 10/01/17 04:00 Room Air 10/01/17 03:23 36.7 57 16 107/56 (73) 94 Room Air Constitutional: General Apperance: heathly-appearing Level of Distress: NAD Psychiatric: Mental Status: active & alert Head: normocephalic Eyes: EOM: EOMI ENMT: normal ENT inspection, hearing grossly normal Neck: supple, no masses Lungs: Respiratory effort: no dyspnea, good air movement Auscultation: breath sounds normal, no wheezing Cardiovascular: Heart Auscultation: RRR, no murmurs, no rubs, no gallops Peripheral Pulses: Bruits: none appreciated Abdomen: Bowel Sounds: normal Inspection & Palpation: soft, no tenderness, guarding & rebound, no masses Musculoskeletal: normal strength (5/5 throughout) Extremities: no edema Neurologic: Cranial Nerves: grossly intact Sensation: grossly intact Data Laboratory Results: Last 24 Hours Test 09/30/17 17:40 09/30/17 17:49 10/01/17 02:35 10/01/17 09:48 White Blood Count 7.21 K/uL Red Blood Count 4.70 M/uL Hemoglobin 14.9 g/dL Hematocrit 42.3 % Mean Corpuscular Volume 90.0 fL Mean Corpuscular Hemoglobin 31.7 pg Mean Corpuscular Hemoglobin Concent 35.2 g/dl Platelet Count 172 K/uL Mean Platelet Volume 9.7 fL Neutrophils (%) (Auto) 63.5 % Lymphocytes (%) (Auto) 20.1 % Monocytes (%) (Auto) 9.4 % Eosinophils (%) (Auto) 6.1 % Basophils (%) (Auto) 0.6 % Neutrophils # (Auto) 4.58 K/uL Lymphocytes # (Auto) 1.45 K/uL Monocytes # (Auto) 0.68 K/uL Eosinophils # (Auto) 0.44 K/uL Basophils # (Auto) 0.04 K/uL RDW Standard Deviation 43.8 fL RDW Coefficient of Variation 13.3 % Immature Granulocyte % (Auto) 0.3 % Immature Granulocyte # (Auto) 0.02 K/uL Prothrombin Time 10.5 SECONDS Prothromb Time International Ratio 1.0 Activated Partial Thromboplast Time 24.5 SECONDS 95.6 SECONDS 53.0 SECONDS Partial Thromboplastin Ratio 0.9 3.7 2.0 D-Dimer 400 ug/L FEU Sodium Level 139 mmol/L Potassium Level 3.8 mmol/L Chloride Level 106 mmol/L Carbon Dioxide Level 27 mmol/L Anion Gap 6.0 mmol/L 15.0 mmol/L Blood Urea Nitrogen 17 mg/dl Creatinine 0.98 mg/dl Estimated GFR () 92.1 Estimated GFR (Non- 79.5 BUN/Creatinine Ratio 16.8 Random Glucose 79 mg/dl Calcium Level 9.2 mg/dl Total Bilirubin 0.7 mg/dl Direct Bilirubin 0.3 mg/dl Aspartate Amino Transf (AST/SGOT) 42 U/L Alanine Aminotransferase (ALT/SGPT) 44 U/L Alkaline Phosphatase 60 U/L Total Creatine Kinase 254 U/L Creatine Kinase MB 3.9 ng/ml Creatine Kinase MB Ratio 1.5 Troponin I < 0.015 ng/ml < 0.015 ng/ml < 0.015 ng/ml Total Protein 7.3 gm/dl Albumin 3.9 gm/dl Globulin 3.4 gm/dl Albumin/Globulin Ratio 1.2 Lipase 285 U/L Chemistry Specimen Hemolysis Bedside Hemoglobin 14.6 g/dl Bedside Hematocrit 43 % Bedside Sodium 142 mEq/L Bedside Potassium 3.8 mEq/L Bedside Chloride 104 mEq/L Bedside Total CO2 27 mEq/l Bedside Blood Urea Nitrogen 16 mg/dl Bedside Creatinine 1.0 mg/dl Bedside Glucose (other) 85 mg/dl Bedside Ionized Calcium (Frida) 1.21 mmol/l Estimated Average Glucose 117 mg/dl Hemoglobin A1c 5.7 % Triglycerides Level 94 mg/dl Cholesterol Level 83 mg/dl HDL Cholesterol 47 mg/dl LDL Cholesterol, Calculated 17 mg/dl VLDL Cholesterol, Calculated 19 mg/dl Cholesterol/HDL Ratio 1.8 Imaging: Chest x-ray is unremarkable EKG: Sinus bradycardia, left bundle branch block, first-degree AV block. Frequent premature ventricular beats. QRS narrowing or following the pause after a premature ventricular beat. Telemetry reviewed: Sinus rhythm and sinus bradycardia, frequent premature ventricular beats Echocardiography shows significant left ventricular dysfunction with an ejection fraction of 25-30%. Assessment & Plan 1. Chest discomfort: He presented with an atypical type chest discomfort which may be nonischemic, however he also describes substernal chest discomfort with shoveling snow over the winter which sounds anginal. He has a relatively recent left bundle branch block pattern, and now a quite recent development of significant left ventricular dysfunction. Despite having a negative catheterization perhaps 9 years ago and a negative stress test last year I think it would be safest to perform cardiac catheterization. If the catheterization is negative for significant coronary disease (which is likely but he does have risk factors) then we can pursue treatment of a nonischemic cardiomyopathy. We will plan on doing that tomorrow. 2. Cardiomyopathy: He appears to have developed a significant cardiomyopathy since his last evaluation, his ejection fraction is felt to be 25-30%. This could be related to the left bundle branch block pattern in which case would be nonischemic, he may respond to medications or biventricular pacing. It is important to determine whether is ischemic or nonischemic in the catheterization should help us. I am going to start him on carvedilol, he evidently did not tolerate metoprolol in the past. He does have sinus bradycardia which may limit her use of beta blockade. We should also start JAMAAL inhibitors and he does not seem to have a contraindication. I will start a low dose of that as well. 3. Tachycardia: He has some type of SVT, whether is a reentrant arrhythmia or atrial flutter is hard to tell from the data that I have. His symptoms are more suggestive of a paroxysmal supraventricular tachycardia and his electrocardiogram certainly consistent with that and I do not see clear evidence of flutter on his recent episode. We will likely have to further investigate this but we will look at his coronary arteries first. In the meantime he is on heparin, although he has been in sinus rhythm and I do not think he needs to remain on that through the catheterization. I will discontinue that prior to his catheterization tomorrow. 4. Left bundle branch block: He has what appears to be probably a rate related left bundle branch block, and that may have been present at higher heart rates for some time. He did have a Lyme test in 2013 I am going to repeat that, if that is negative there is little else that we can do to identify a cause of this. Thank you for allowing me to participate in his care.
--- NOTE | 2017-10-01 14:56 | Progress Note ---
Subjective Date of Service: Oct 01, 2017. Subjective Pt evaluation today including: conversation w/ patient, conversation w/ family , physical exam, chart review, lab review, review of studies, conversation w/ furniture sales consultant, review of inpatient medication list no more chest pain, doing okay, report the chest pain upon admission was in the middle of the chest possible from heartburn, Denied was having left-sided chest pain or radiation to the shoulders Problem List Medical Problems: (1) Chest pain Status: Acute Review of Systems Constitutional: No fever, No chills, No sweats, No weight loss, No weakness, No fatigue, No problem reported Eyes: No worsening of vision, No eye pain, No redness, No discharge, No diplopia ENT: No hearing loss, No unusual epistaxis, No nasal symptoms, No sore throat, No tinnitus, No dental problems, No trouble swallowing Respiratory: No cough, No sputum, No wheezing, No shortness of breath, No dyspnea on exertion, No dyspnea at rest, No hemoptysis Cardiac: No chest pain, No orthopnea, No PND, No edema, No claudication, No palpitations Abdomen: No pain, No nausea, No vomiting, No diarrhea, No constipation Musculoskeletal: No joint pain, No muscle pain, No swelling, No calf pain Male : No dysuria, No urinary frequency, No incontinence, No nocturia more than once/night, No slowing stream, No hematuria Neurologic: No memory loss, No paralysis, No weakness, No numbness/tingling, No vertigo, No balance problems Psychiatric: No depression symptoms, No anhedonism, No anxiety, No insomnia, No substance abuse Heme: No abnormal bleeding/bruising, No clotting problems, No swollen lymph nodes, No night sweats Endo: No fatigue, No excessive thirst, No excessive urination Skin: No rash, No itch, No new/changing skin lesions, No color change, No bleeding Objective Vital Signs Date Time Temp Pulse Resp B/P (MAP) Pulse Ox O2 Delivery O2 Flow Rate FiO2 10/01/17 12:00 Room Air 10/01/17 11:42 36.6 57 16 131/69 (89) 97 10/01/17 08:00 Room Air 10/01/17 07:24 36.5 74 18 114/69 (84) 97 10/01/17 04:00 Room Air 10/01/17 03:23 36.7 57 16 107/56 (73) 94 Room Air 10/01/17 00:00 Room Air 09/30/17 23:07 36.6 61 18 114/63 (80) 95 Room Air 09/30/17 17:09 36.9 63 20 147/79 98 Room Air Physical Exam General Appearance: WD/WN, no apparent distress Eyes: normal inspection, PERRL, EOMI, sclerae normal ENT: normal ENT inspection, hearing grossly normal, pharynx normal Neck: supple, no adenopathy, thyroid normal, no JVD, no carotid bruits, trachea midline Respiratory/Chest: chest non-tender, normal breath sounds, no respiratory distress, no accessory muscle use, + decreased breath sounds Cardiovascular: regular rate, rhythm, no edema, no gallop, no JVD, no murmur Abdomen: normal bowel sounds, non tender, soft, no organomegaly, no pulsatile mass Extremities: normal range of motion, non-tender, normal inspection, no pedal edema, no calf tenderness, normal capillary refill, pelvis stable Neurologic/Psychiatric: contract preparer II-XII nml as tested, no motor/sensory deficits, alert, normal mood/affect, oriented x 3 Skin: normal color, warm/dry, no rash Lymphatic: no adenopathy Laboratory Results Last 24 Hours Test 09/30/17 17:40 09/30/17 17:49 10/01/17 02:35 10/01/17 09:48 White Blood Count 7.21 K/uL Red Blood Count 4.70 M/uL Hemoglobin 14.9 g/dL Hematocrit 42.3 % Mean Corpuscular Volume 90.0 fL Mean Corpuscular Hemoglobin 31.7 pg Mean Corpuscular Hemoglobin Concent 35.2 g/dl Platelet Count 172 K/uL Mean Platelet Volume 9.7 fL Neutrophils (%) (Auto) 63.5 % Lymphocytes (%) (Auto) 20.1 % Monocytes (%) (Auto) 9.4 % Eosinophils (%) (Auto) 6.1 % Basophils (%) (Auto) 0.6 % Neutrophils # (Auto) 4.58 K/uL Lymphocytes # (Auto) 1.45 K/uL Monocytes # (Auto) 0.68 K/uL Eosinophils # (Auto) 0.44 K/uL Basophils # (Auto) 0.04 K/uL RDW Standard Deviation 43.8 fL RDW Coefficient of Variation 13.3 % Immature Granulocyte % (Auto) 0.3 % Immature Granulocyte # (Auto) 0.02 K/uL Prothrombin Time 10.5 SECONDS Prothromb Time International Ratio 1.0 Activated Partial Thromboplast Time 24.5 SECONDS 95.6 SECONDS 53.0 SECONDS Partial Thromboplastin Ratio 0.9 3.7 2.0 D-Dimer 400 ug/L FEU Sodium Level 139 mmol/L Potassium Level 3.8 mmol/L Chloride Level 106 mmol/L Carbon Dioxide Level 27 mmol/L Anion Gap 6.0 mmol/L 15.0 mmol/L Blood Urea Nitrogen 17 mg/dl Creatinine 0.98 mg/dl Estimated GFR () 92.1 Estimated GFR (Non- 79.5 BUN/Creatinine Ratio 16.8 Random Glucose 79 mg/dl Calcium Level 9.2 mg/dl Total Bilirubin 0.7 mg/dl Direct Bilirubin 0.3 mg/dl Aspartate Amino Transf (AST/SGOT) 42 U/L Alanine Aminotransferase (ALT/SGPT) 44 U/L Alkaline Phosphatase 60 U/L Total Creatine Kinase 254 U/L Creatine Kinase MB 3.9 ng/ml Creatine Kinase MB Ratio 1.5 Troponin I < 0.015 ng/ml < 0.015 ng/ml < 0.015 ng/ml Total Protein 7.3 gm/dl Albumin 3.9 gm/dl Globulin 3.4 gm/dl Albumin/Globulin Ratio 1.2 Lipase 285 U/L Chemistry Specimen Hemolysis Bedside Hemoglobin 14.6 g/dl Bedside Hematocrit 43 % Bedside Sodium 142 mEq/L Bedside Potassium 3.8 mEq/L Bedside Chloride 104 mEq/L Bedside Total CO2 27 mEq/l Bedside Blood Urea Nitrogen 16 mg/dl Bedside Creatinine 1.0 mg/dl Bedside Glucose (other) 85 mg/dl Bedside Ionized Calcium (Frida) 1.21 mmol/l Estimated Average Glucose 117 mg/dl Hemoglobin A1c 5.7 % Triglycerides Level 94 mg/dl Cholesterol Level 83 mg/dl HDL Cholesterol 47 mg/dl LDL Cholesterol, Calculated 17 mg/dl VLDL Cholesterol, Calculated 19 mg/dl Cholesterol/HDL Ratio 1.8 Assessment and Plan 67-year-old white male admitted on September 30, 2017 because of chest pain and possible unstable angina atypical type chest discomfort recent left bundle branch block New identified left ventricular dysfunction. Left heart cath was negative catheterization 9 years ago and a negative stress test last year Troponin was negative 3, has been on a heparin drip since admission Cardiology saw patient , planning to do left heart cath tomorrow Cardiomyopathy with significant decrease ejection fraction at 25-30% Start low-dose JAMAAL inhibitor, patient possible not able to tolerate beta- mike because of bradycardia SVT, follow-up with cardiology Left bundle branch block: History of positive Lyme test in 2013, has sent Lyme disease checking Diabetic, HbA1c was checked, 5.7, stable continue current care hx of asthma, bronchitis,dyslipidemia, hypertension, rheumatoid arthritis, sinusitis, stable continue current care DVT prophylaxis covered Continued [facility] stay due to: multiple IV medications needed Discharge planning: home
[2017-10-01 15:45] VITALS: BP 105/64; PULSE 60; TEMP 37; O2SAT 93
--- NOTE | 2017-10-01 16:41 | History and Physical ---
History & Physical Date & Time of Service: Oct 01, 2017 at 16:38 Chief Complaint: Chest Pain, Lbbb Primary Care Physician: Ilya Rubio M.D. History of Present Illness Source: patient, spouse, clinic records, hospital records Delayed documentation entry due to EMR being down 09/30 This is a 67 y/o male with a history of SVT, HTN, non-Hodgkins lymphoma, asthma , RA, and GERD who presents to the ED on 09/30 with chest discomfort and EKG changes. The patient states that he first started feeling palpitations several weeks ago and a funny feeling in his chest. He was eventually evaluated by an outside hospital. He was initially diagnosed with a-fib, then later SVT. His home amlodipine was discontinued and he was then started on metoprolol. He states he has not felt right since starting this medication. He has had intermittent chest discomfort for the last few weeks that is worse with exertion. He describes it as a discomfort similar to heartburn in his chest that was a 7/10 at its most severe while exerting himself. He notes associated shortness of breath with more severe discomfort. He was at his PCP office when an EKG revealed a new LBBB, prompting him to come to the ED. He states that the discomfort was only up to a 2/10 today and he denies any discomfort currently or SOB. The patient denies fevers, chills, sweats, claudication, cough, wheezing, nausea, vomiting, abdominal pain, dysuria, hematuria, urinary retention, paralysis, weakness, numbness and tingling. Past Medical/Surgical History Medical Problems: (1) Abdominal pain (2) Asthma, Unspecified (3) Bronchitis (4) Diab Diamante Wo Compl, Type Ii Or Unspec Type, Uncontrolled (5) Diverticulitis (6) Diverticulosis Colon (W/O Ment Of Hemorrhage) (7) Elevated d-dimer (8) Hyperlipidemia Nec/Nos (9) Hypertension Nos (10) Lymph node enlargement (11) Lymphoma (12) New onset left bundle branch block (LBBB) (13) Rheumatoid Arthritis (14) Sinusitis (15) Sinusitis SVT Non-Hodgkin's lymphoma Family History Diabetes mellitus FHx: cancer (colon, gastric, brain, leukemia) TIAs Social History Smoking Status: Never Smoker Smokeless Tobacco Use: No Alcohol Use: socially (6 beers OR glasses of wine per week) Drug Use: none Marital Status: Housing status: lives with significant other Occupational Status: retired Immunizations History of Influenza Vaccine: Unknown History of Tetanus Vaccine?: utd History of Pneumococcal: Unknown History of Hepatitis B Vaccine: No Allergies Coded Allergies: Metronidazole (Verified Allergy, Severe, HIVES AND SHORTNESS OF BREATH, ) Sulfa Antibiotics (Verified Allergy, Intermediate, HIVES, GI UPSET, ) Home Medications Scheduled Aspirin (Aspirin EC Low Dose), 81 MG PO DAILY Cetirizine (Zyrtec), 10 MG PO DAILY Dextromethorphan-Guaifenesin (Mucinex Dm Maximum Streng), 1 TAB PO BID Fluticasone Propionate (Nasal) (Flonase Allergy Relief), 2 SPRAYS DAILY Metoprolol Tartrate (Lopressor), 25 MG PO BID Mometasone Furoate-Formoterol (Dulera 100/5 Mcg), 2 PUFFS INH BID Mometasone Furoate-Formoterol (Dulera 200/5 Mcg), 2 PUFFS INH BID Montelukast Sodium (Singulair), 1 TAB PO HS Multivitamin (Multivitamin), 1 TAB PO QPM Multivitamin (Multivitamin), 1 TAB PO DAILY Ranitidine (Zantac), 1 TAB PO HS Scheduled PRN Albuterol (Proair Hfa), 2 PUFF INH Q4 PRN for SOB/Wheezing Review of Systems Constitutional: No fever, No chills, No sweats Eyes: No worsening of vision, No eye pain, No diplopia ENT: No hearing loss, No nasal symptoms, No trouble swallowing Respiratory: +SOB. No cough, No wheezing Cardiovascular: +Chest pain, palpitations. No claudication Abdomen: No pain, No nausea, No vomiting Musculoskeletal: No joint pain, No muscle pain, No swelling Genitourinary - Male: No dysuria, No urinary retention, No hematuria Neurologic: No paralysis, No weakness, No numbness/tingling Integumentary: No rash, No itch, No color change Physical Exam Vital Signs Date Time Temp Pulse Resp B/P (MAP) Pulse Ox O2 Delivery O2 Flow Rate FiO2 10/01/17 16:00 Room Air 10/01/17 15:45 37.0 60 20 105/64 (78) 93 Room Air 10/01/17 12:00 Room Air 10/01/17 11:42 36.6 57 16 131/69 (89) 97 10/01/17 08:00 Room Air 10/01/17 07:24 36.5 74 18 114/69 (84) 97 10/01/17 04:00 Room Air 10/01/17 03:23 36.7 57 16 107/56 (73) 94 Room Air 10/01/17 00:00 Room Air 09/30/17 23:07 36.6 61 18 114/63 (80) 95 Room Air 09/30/17 17:09 36.9 63 20 147/79 98 Room Air General appearance: +Obese. Well-developed, well-nourished, no apparent distress Head: Normocephalic, atraumatic Eyes: Normal inspection, PERRL, EOMI ENT: Normal ENT inspection, hearing grossly normal, pharynx normal Neck: Supple, no JVD, trachea midline Respiratory/Chest: Lungs clear to auscultation, normal breath sounds, no respiratory distress Cardiovascular: Regular rate & rhythm, no gallop, no murmur Abdomen/GI: Normal bowel sounds, non-tender, soft Extremities/Musculoskeletal: Normal inspection, no calf tenderness, no pedal edema Neurological/Psych: Alert, normal mood/affect, oriented x 3 Skin: Normal color, warm/dry, no rash Diagnostics Laboratory Results Results Past 24 Hours Test 09/30/17 17:40 09/30/17 17:49 10/01/17 02:35 10/01/17 09:48 Range/Units White Blood Count 7.21 4.8-10.8 K/uL Red Blood Count 4.70 4.7-6.1 M/uL Hemoglobin 14.9 14.0-18.0 g/dL Hematocrit 42.3 42-52 % Mean Corpuscular Volume 90.0 80-100 fL Mean Corpuscular Hemoglobin 31.7 25-34 pg Mean Corpuscular Hemoglobin Concent 35.2 32-36 g/dl Platelet Count 172 130-400 K/uL Mean Platelet Volume 9.7 7.4-10.4 fL Neutrophils (%) (Auto) 63.5 % Lymphocytes (%) (Auto) 20.1 % Monocytes (%) (Auto) 9.4 % Eosinophils (%) (Auto) 6.1 % Basophils (%) (Auto) 0.6 % Neutrophils # (Auto) 4.58 1.4-6.5 K/uL Lymphocytes # (Auto) 1.45 1.2-3.4 K/uL Monocytes # (Auto) 0.68 0.11-0.59 K/uL Eosinophils # (Auto) 0.44 0-0.5 K/uL Basophils # (Auto) 0.04 0-0.2 K/uL RDW Standard Deviation 43.8 36.4-46.3 fL RDW Coefficient of Variation 13.3 11.5-14.5 % Immature Granulocyte % (Auto) 0.3 % Immature Granulocyte # (Auto) 0.02 0.00-0.02 K/uL Prothrombin Time 10.5 9.0-12.0 SECONDS Prothromb Time International Ratio 1.0 0.9-1.1 Activated Partial Thromboplast Time 24.5 95.6 53.0 21.0-31.0 SECONDS Partial Thromboplastin Ratio 0.9 3.7 2.0 D-Dimer 400 0-500 ug/L FEU Sodium Level 139 136-145 mmol/L Potassium Level 3.8 3.5-5.1 mmol/L Chloride Level 106 98-107 mmol/L Carbon Dioxide Level 27 21-32 mmol/L Anion Gap 6.0 15.0 16-25 mmol/L Blood Urea Nitrogen 17 7-18 mg/dl Creatinine 0.98 0.60-1.40 mg/dl Estimated GFR () 92.1 Estimated GFR (Non- 79.5 BUN/Creatinine Ratio 16.8 10-20 Random Glucose 79 70-99 mg/dl Calcium Level 9.2 8.5-10.1 mg/dl Total Bilirubin 0.7 0.2-1 mg/dl Direct Bilirubin 0.3 0-0.2 mg/dl Aspartate Amino Transf (AST/SGOT) 42 15-37 U/L Alanine Aminotransferase (ALT/SGPT) 44 12-78 U/L Alkaline Phosphatase 60 45-117 U/L Total Creatine Kinase 254 39-308 U/L Creatine Kinase MB 3.9 0.5-3.6 ng/ml Creatine Kinase MB Ratio 1.5 0-3.0 Troponin I < 0.015 < 0.015 < 0.015 0-0.045 ng/ml Total Protein 7.3 6.4-8.2 gm/dl Albumin 3.9 3.4-5.0 gm/dl Globulin 3.4 2.5-4.0 gm/dl Albumin/Globulin Ratio 1.2 0.9-2 Lipase 285 73-393 U/L Chemistry Specimen Hemolysis Bedside Hemoglobin 14.6 14.0-18.0 g/dl Bedside Hematocrit 43 42-52 % Bedside Sodium 142 135-144 mEq/L Bedside Potassium 3.8 3.3-5.0 mEq/L Bedside Chloride 104 101-112 mEq/L Bedside Total CO2 27 24-31 mEq/l Bedside Blood Urea Nitrogen 16 7-18 mg/dl Bedside Creatinine 1.0 0.6-1.3 mg/dl Bedside Glucose (other) 85 70-99 mg/dl Bedside Ionized Calcium (Frida) 1.21 1.12-1.32 mmol/l Estimated Average Glucose 117 mg/dl Hemoglobin A1c 5.7 4.5-5.6 % Triglycerides Level 94 0-150 mg/dl Cholesterol Level 83 0-200 mg/dl HDL Cholesterol 47 mg/dl LDL Cholesterol, Calculated 17 mg/dl VLDL Cholesterol, Calculated 19 mg/dl Cholesterol/HDL Ratio 1.8 Diagnostic Radiology Reviewed the following studies and agree with interpretation as follows: CHEST ONE VIEW PORTABLE CLINICAL HISTORY: RACING HEART, ABNORMAL EKG cardiac arrhythmia COMPARISON STUDY: No previous studies for comparison. FINDINGS: The bones soft tissues and hemidiaphragms are normal. The cardiomediastinal silhouette is normal. The lungs are clear. The pulmonary vasculature is normal. IMPRESSION: Negative chest. EKG Reviewed EKG and agree with interpretation as follows: 54 bpm, sinus bradycardia, occasional PVC. LBBB (did not appear in first EKG, present in second EKG) Impression Assessment and Plan 67 y/o male with a history of SVT, HTN, non-Hodgkins lymphoma, asthma, RA, and GERD who presents to the ED on 09/30 with chest discomfort and EKG changes. Chest pain, new LBBB -Admit to telemetry -Cardiology consulted by ED physician, hold off on urgent cath as asymptomatic now -Trend cardiac enzymes q8h x 2, first set negative -EKG qam and prn chest pain -Routine resting echo -Fasting lipid panel and hemoglobin A1c to stratify risk -Start empiric Lipitor 40 mg PO hs -Continue ASA, metoprolol -Nitro prn -NPO after midnight except meds SVT, HTN--stable, rate controlled -Continue Lopressor 25 mg PO BID Non-Hogkins lymphoma--noted, currently active per pt but no current treatment, watching and waiting Asthma, allergies -Albuterol inhaler prn -Zyrtec RA--stable -No current treatment/biologics GERD -Zantac 150 mg PO hs DVT prophylaxis -Heparin drip Code Status -Level I, FULL RESUSCITATION STATUS i personally examined pt and verified all bull points w A [place] PAC feeling ok now - did have cp w exertion. flipping in and out of LBBB. had fast rhythm in [place] - wasn't clear what as far as afib or SVT - switched to metoprolol vitals noted nad breathing unlabored EKGs noted cp - concerning, but neg trop now sx free - cardiology eval LBBB - see above, trop neg and currently pain free fast rhythm - monitoring, if doesn't show anything inpt, then would need outpt event monitoring otherwise as above Resuscitation Status VTE Prophylaxis Will order VTE Prophylaxis: Yes
[2017-10-01] MEDS ORDERED: LPR25 PO (16:43)
[2017-10-01] MEDS ORDERED: RANI150T85 PO (16:43)
[2017-10-01] MEDS ORDERED: ASPEC81 PO (16:43)
[2017-10-01 19:50] VITALS: BP 150/78; PULSE 75; TEMP 37.3; O2SAT 95
[2017-10-01] MEDS ORDERED: ATORVASTATIN 40 MG TAB PO SCH (21:00)
[2017-10-01] MEDS ORDERED: RANITIDINE HCL 150 MG TAB PO SCH (21:00)
[2017-10-01] MEDS ORDERED: CARVEDILOL 6.25 MG TAB PO SCH (21:00)
[2017-10-02] VITALS (12 sets, daily range): BP systolic 99–166; BP diastolic 50–84; PULSE 48–74; TEMP 36.5–37.2; O2SAT 92–97
[2017-10-02 05:13] LABS: PTT PATIENT 24.4 SECONDS (21.0-31.0)
[2017-10-02 05:20] LABS: HEMATOCRIT 40.9 % (42-52); HEMOGLOBIN 13.8 g/dL (14.0-18.0); MEAN CELL VOLUME 91.1 fL (80-100); MEAN CORPUSCULAR HEMOGLOBIN 30.7 pg (25-34); MEAN PLATELET VOLUME 9.5 fL (7.4-10.4); PLATELET COUNT 147 K/uL (130-400); RED CELL DISTRIBUTION WIDTH CV 13.5 % (11.5-14.5); RED CELL DISTRIBUTION WIDTH SD 44.8 fL (36.4-46.3); WHITE BLOOD COUNT 5.14 K/uL (4.8-10.8)
[2017-10-02 05:26] LABS: MEAN CORPUSCULAR HGB CONC 33.7 g/dl (32-36)
[2017-10-02] MEDS ORDERED: MIDAZOLAM HCL 1 MG/ML 2ML VIAL ONE (07:18)
[2017-10-02] MEDS ORDERED: NiCARDipine HCL INJ 2.5 MG/ML 10 ML AMP ONE (07:18)
[2017-10-02] MEDS ORDERED: HEPARIN SOD (PORCINE) 1000 UNIT/ML 10 ML VIAL ONE (07:18)
[2017-10-02] MEDS ORDERED: FENTANYL CITRATE INJ 50 MCG/1 ML 2 ML VIAL ONE (07:18)
[2017-10-02] MEDS ORDERED: NITROGLYCERIN/D5W 100MCG/ML 20ML SYR ONE (07:19)
[2017-10-02] MEDS ORDERED: ASPIRIN 81 MG CHEW ONE (07:29)
--- NOTE | 2017-10-02 07:36 | Pre Sedation Assessment ---
Pre Sedation Assessment General Date of Sedation: Oct 02, 2017. Vital Signs Past 12 Hours Date Time Temp Pulse Resp B/P (MAP) Pulse Ox O2 Delivery O2 Flow Rate FiO2 10/02/17 04:00 95 Room Air 10/02/17 03:53 36.6 53 18 126/57 (80) 95 Room Air 10/02/17 00:19 36.7 62 18 99/50 (66) 94 Room Air 10/02/17 00:00 94 Room Air 10/01/17 20:00 Room Air 10/01/17 19:50 37.3 75 20 150/78 (102) 95 Room Air Review Cardiovascular: regular rate, rhythm Pre-Sedation Airway Assessment Smoking Status: Never Smoker Hx of Sleep Apnea: No Hx of difficult intubation: No Short Thick Neck: No Thyro-mental Distance: > 3 Finger Breadths Mallampati Classification: Class III ASA Classification: Class III NPO Status Date of Last Intake of Fluids: Oct 01, 2017 Time of Last Intake of Fluids: 2330 Date of Last Intake of Solids: Oct 01, 2017 Time of Last Intake of Solids: 1900 Procedure Planning Contraindications for Sedation: None Current Medications Reviewed: Yes Notes The planned sedation has been discussed with the patient. Informed Consent was obtained. I have identified the patient, determined the appropriateness of sedation and have assessed the patient immediately prior to the procedure. All medicine(s) and interventions are by my order.
[2017-10-02] MEDS: ASPIRIN 81 MG ECTAB PO SCH (07:56)
--- NOTE | 2017-10-02 08:06 | Cardiology Procedure Brief Nt ---
Preliminary Cardiology Note Procedure Date Oct 02, 2017. Pre-Procedure Diagnosis CARDIOMYOPATHY Post-Procedure Diagnosis normal coronaries Procedure(s) Performed LHC, coronaries Equipment [employer] Analyst(s) None Estimated Blood Loss 10cc Preliminary Findings Normal coronaries and LV filling pressures Recommendations medical therapy Specimens none Complication(s) None Disposition PCU
[2017-10-02] MEDS ORDERED: ENOXAPARIN 40 MG/0.4 ML SYR SQ SCH (09:00)
[2017-10-02] MEDS ORDERED: LISINOPRIL 2.5 MG TAB PO SCH (09:00)
--- NOTE | 2017-10-02 10:59 | Cardiology Follow-Up ---
Subjective Date of Service: Oct 02, 2017. History of Present Illness 67 yo male with h/o of non-hodkins lymphoma, RA and paroxysmal arrhythmia (SVT and rate dependent LBBB) comes to [facility] for evaluation of exertional chest pain and arrhythmia. Patient had a cardiac cath performed today which demonstrated normal cardiac arteries. Patient is doing well following the procedure. He denies chest pain, tenderness or discomfort. In addition he denies SOB, peripheral edema, presyncopal or syncopal episode. Social History Smoking Status: Never Smoker History of Alcohol Use: Yes (social use, up to 6-pack beer per week) Review of Systems Respiratory: No cough, No sputum, No wheezing, No shortness of breath, No dyspnea on exertion, No dyspnea at rest, No hemoptysis Cardiac: No chest pain, No orthopnea, No PND, No edema, No claudication, No palpitations Medications Current Inpatient Medications Medications (Trade) Dose Ordered Sig/Damon Route Start Time Stop Time Status Last Admin Dose Admin Nitroglycerin (Nitrostat Tab) 0.4 mg UD PRN SL 09/30/17 22:00 10/30/17 21:59 Aspirin (Ecotrin Tab) 81 mg QAM PO 10/01/17 09:00 10/31/17 08:59 10/01/17 08:13 81 MG Atorvastatin Calcium (Lipitor Tab) 40 mg HS PO 10/01/17 21:00 10/31/17 20:59 10/01/17 21:11 40 MG Ranitidine HCl (zANTac TAB) 150 mg HS PO 10/01/17 21:00 10/31/17 20:59 10/01/17 21:11 150 MG Albuterol (Proair Hfa) 2 puffs Q4H PRN INH 09/30/17 22:00 10/30/17 21:59 Acetaminophen (Tylenol Tab) 650 mg Q6H PRN PO 10/01/17 09:15 10/31/17 09:14 Carvedilol (Coreg Tab) 6.25 mg BID PO 10/01/17 21:00 10/31/17 20:59 10/01/17 21:11 6.25 MG Lisinopril (Zestril Tab) 2.5 mg QAM PO 10/02/17 09:00 11/01/17 08:59 Enoxaparin Sodium (Lovenox Inj) 40 mg QAM SQ 10/02/17 09:00 11/01/17 08:59 Objective Vital Signs Past 12 Hours Date Time Temp Pulse Resp B/P (MAP) Pulse Ox O2 Delivery O2 Flow Rate FiO2 10/02/17 08:05 70 18 118/80 (93) 98 Room Air 10/02/17 08:00 70 18 123/80 (94) 98 Room Air 10/02/17 07:00 Room Air 10/02/17 04:00 95 Room Air 10/02/17 03:53 36.6 53 18 126/57 (80) 95 Room Air 10/02/17 00:19 36.7 62 18 99/50 (66) 94 Room Air 10/02/17 00:00 94 Room Air Last Recorded Weight-Kilograms: 97.900 Physical Exam Constitutional: General Apperance: heathly-appearing Level of Distress: NAD Ambulation: ambulating normally Lungs: Respiratory effort: no dyspnea, good air movement Auscultation: breath sounds normal, no wheezing, no rales/crackles, no rhonchi Cardiovascular: Heart Auscultation: RRR, no murmurs, no rubs, no gallops Peripheral Pulses: Bruits: none appreciated Extremities: no cyanosis, no edema Data Laboratory Results: Last 24 Hours Test 10/02/17 04:47 White Blood Count 5.14 K/uL Red Blood Count 4.49 M/uL Hemoglobin 13.8 g/dL Hematocrit 40.9 % Mean Corpuscular Volume 91.1 fL Mean Corpuscular Hemoglobin 30.7 pg Mean Corpuscular Hemoglobin Concent 33.7 g/dl RDW Standard Deviation 44.8 fL RDW Coefficient of Variation 13.5 % Platelet Count 147 K/uL Mean Platelet Volume 9.5 fL Activated Partial Thromboplast Time 24.4 SECONDS Partial Thromboplastin Ratio 0.9 Lyme Disease IgG Antibody NEG Lyme Disease IgM Antibody NEG Imaging: EKG: Telemetry reviewed: Assessment and Plan 67 yo male with h/o of non-Hodgkin lymphoma, RA and paroxysmal arrhythmia (SVT and rate related LBBB) comes to [facility] for evaluation of exertional chest pain and arrhythmia. ECHO showed significant reduction in LV function when compared to previous studies. Plan of care was to rule out possible ACS and control/ prevent arrhythmia. Patient had negative enzymes and cath. 1. Chest discomfort -Negative cath today. Chest discomfort unlikely related to ischemia. 2. Cardiomyopathy/LBBB -ECHO--EF 25-30%. -Negative Lyme test -Continue Carvedilol and Lisinopril Kirill Kc MD PGY1--resident ----See attending note for complete information------ Agree with above. Victor Hugo Allan MD
[2017-10-02] MEDS ORDERED: LSN25 PO (12:48)
[2017-10-02] MEDS ORDERED: LPT40 PO (12:48)
[2017-10-02] MEDS ORDERED: CRG625 PO (12:48)
--- NOTE | 2017-10-02 12:49 | Discharge Instructions ---
Discharge Instructions Date of Service Oct 02, 2017. Admission Reason for Admission: Chest Pain, Lbbb Discharge Discharge Diagnosis / Problem: chest pain Discharge Goals Goal(s): Decrease discomfort, Improve function, Improve nutritional status, Learn about illness, Diagnostic testing, Therapeutic intervention, Prevent Disease Progression, Specific goals Activity Recommendations Activity Limitations: as noted below Lifting Limitations: no more than 5 pounds (in right arm) . Instructions / Follow-Up Instructions / Follow-Up you have atypical type chest discomfort recent left bundle branch block your left heart cath was unremarkable you need to follow up as instructed for the post cardiac catheterization instruction per neurology hospitalist - you need to follow up with your primary care physician in 1 week, - take medication as instructed, never overdose or any misuse, or take with alcohol, because misuse of medicine may cause organ damage or , call your primary care physician if have questions of medicaitons. - call your primary care physician OR go to local emergency room if has any fever/chill, chest pain, shortness of breathing, nausea/vomiting/abdominal pain , facial droop/slurry speech/local weakness, or if has any questions. - fall precaution - diet as instructed - you need to follow up with your subspecialist, such as neurology hospitalist Instructions for going home after Cardiac Catheterization Care for the Catheter Insertion Site Procedures may be performed in the femoral artery in the groin (in the area at the top of your thigh) or in the radial artery in your arm. When you go home, there will be a bandage (dressing) over the catheter insertion site (also called the wound site). The morning after your procedure, you may take the dressing off. The easiest way to do this is when you are showering, get the tape and dressing wet and remove it. After the bandage is removed, cover the area with a small adhesive bandage. It is normal for the catheter insertion site to be black and blue for a couple of days. The site may also be slightly swollen and pink, and there may be a small lump (about the size of a quarter) at the site. Wash the catheter insertion site at least once daily with soap and water. Place soapy water on your hand or washcloth and gently wash the insertion site; do not rub. Keep the area clean and dry when you are not showering. Do not use creams, lotions or ointment on the wound site. Wear loose clothes and loose underwear. Do not take a bath, tub soak, go in a Jacuzzi, or swim in a pool or christensen for one week after the procedure. Activity Guidelines For radial cardiac cath Do not participate in strenuous activities for 2 days after the procedure. This includes most sports - jogging, golfing, play tennis, and bowling. Gradually increase your activities until you reach your normal activity level within two days after the procedure. Current Hospital Diet Patient's current hospital diet: AHA Diet (Heart Healthy) Discharge Diet Recommended Diet: AHA Diet (Heart Healthy) Pending Studies Studies pending at discharge: no Laboratory Results Hemoglobin A1c Test 10/01/17 02:35 Range/Units Estimated Average Glucose 117 mg/dl Hemoglobin A1c 5.7 H 4.5-5.6 % Lipid Panel Test 10/01/17 02:35 Range/Units Triglycerides Level 94 0-150 mg/dl Cholesterol Level 83 0-200 mg/dl HDL Cholesterol 47 mg/dl Cholesterol/HDL Ratio 1.8 LDL Cholesterol, Calculated 17 mg/dl Medical Emergencies . Who to Call and When: Medical Emergencies: If at any time you feel your situation is an emergency, please call 911 immediately. . Non-Emergent Contact Non-Emergency issues call your: Primary Care Provider, Drafter Castings . . "Provider Documentation" section prepared by Carlton Crenshaw. .
--- NOTE | 2017-10-08 09:23 | Discharge Summary ---
Discharge Summary Date of Service Oct 08, 2017. Discharge Summary Admission Date: Sep 30, 2017 at 20:00 Discharge Date: Oct 02, 2017 Discharge Disposition: Home Principal Diagnosis: atypical type chest discomfort Problems/Secondary Diagnoses: left bundle branch block Left heart cath was unremarkable Immunizations: Have You Had Influenza Vaccine: Unknown History of Tetanus Vaccine?: utd History of Pneumococcal: Unknown History of Hepatitis B Vaccine: No Procedures: [facility] Consultations: security business analyst Medication Reconciliation New Medications: Atorvastatin (Lipitor) 40 Mg Tab 40 MG PO HS for 30 Days, TAB Carvedilol (Carvedilol) 6.25 Mg Tab 6.25 MG PO BID for 30 Days, #60 TAB Lisinopril (Lisinopril) 2.5 Mg Tab 2.5 MG PO QAM for 30 Days, #30 TAB Continued Medications: Albuterol (Proair Hfa) Aers 2 PUFF INH Q4 PRN for SOB/Wheezing Aspirin (Aspirin EC Low Dose) 81 Mg Ectab 81 MG PO DAILY Cetirizine (Zyrtec) 10 Mg Tab 10 MG PO DAILY, TAB Dextromethorphan-Guaifenesin (Mucinex Dm Maximum Streng) 1 Tab Tab 1 TAB PO BID for 15 Days, #30 TAB Fluticasone Propionate (Nasal) (Flonase Allergy Relief) 50 Mcg/Act Spr 2 SPRAYS DAILY Mometasone Furoate-Formoterol (Dulera 100/5 Mcg) 1 Aer Aer 2 PUFFS INH BID for 30 Days, #13 GM 2 Refills Mometasone Furoate-Formoterol (Dulera 200/5 Mcg) 1 Aer Aer 2 PUFFS INH BID for 30 Days, #13 GM 3 Refills Montelukast Sodium (Singulair) 10 Mg Tab 1 TAB PO HS, TAB 1 Refill Multivitamin (Multivitamin) Tab 1 TAB PO QPM, TAB Multivitamin (Multivitamin) Tab 1 TAB PO DAILY, TAB Ranitidine (Zantac) 150 Mg Tab 1 TAB PO HS for 30 Days, TAB 3 Refills Discontinued Medications: Metoprolol Tartrate (Lopressor) 25 Mg Tab 25 MG PO BID, TAB Discharge Exam doing well, no c/o Review of Systems: Constitutional: No fever, No chills, No sweats, No weight loss, No weakness , No fatigue, No problem reported Eyes: No worsening of vision, No eye pain, No redness, No discharge, No diplopia, No problem reported Respiratory: No cough, No sputum, No wheezing, No shortness of breath, No dyspnea on exertion, No dyspnea at rest, No hemoptysis, No problem reported Cardiovascular: No chest pain, No orthopnea, No PND, No edema, No claudication, No palpitations, No problem reported Abdomen: No pain, No nausea, No vomiting, No diarrhea, No constipation, No GI bleeding, No problem reported Musculoskeletal: No joint pain, No muscle pain, No swelling, No calf pain, No problem reported Genitourinary - Male: No hematuria, No dysuria, No urinary frequency, No urinary urgency, No urinary hesitancy, No urinary retention, No urinary incontinence, No penile discharge, No lesions, No impotence, No problem reported Neurologic: No memory loss, No paralysis, No weakness, No numbness/tingling , No vertigo, No balance problems, No problem reported Psychiatric: No depression symptoms, No anhedonism, No anxiety, No insomnia , No substance abuse, No problem reported Endocrine: No fatigue, No excessive thirst, No excessive urination, No problem reported Hematologic / Lymphatic: No abnormal bleeding/bruising, No clotting problems , No swollen lymph nodes, No night sweats, No problem reported Integumentary: No rash, No itch, No new/changing skin lesions, No color change, No bleeding, No problem reported Physical Exam: General Appearance: WD/WN, no apparent distress Eyes: normal inspection, PERRL, EOMI ENT: normal ENT inspection, hearing grossly normal, TMs normal Neck: supple, no adenopathy, thyroid normal Respiratory/Chest: chest non-tender, lungs clear, normal breath sounds, no respiratory distress Cardiovascular: regular rate, rhythm, no edema, no gallop, no JVD Abdomen / GI: normal bowel sounds, non tender, soft, no organomegaly, no pulsatile mass, normal rectal exam Extremities: normal inspection, no calf tenderness, normal capillary refill , no pedal edema Neurologic/Psychiatric: counseling services manager II-XII nml as tested, no motor/sensory deficits , alert, normal mood/affect, normal reflexes Skin: normal color, warm/dry Hospital Course 67-year-old white male admitted on September 30, 2017 because of chest pain and possible unstable angina atypical type chest discomfort recent left bundle branch block New identified left ventricular dysfunction. Left heart cath was negative catheterization 9 years ago and a negative stress test last year Troponin was negative 3, has been on a heparin drip since admission Cardiology saw patient , LHC was done, was unremarkable Cardiomyopathy with significant decrease ejection fraction at 25-30% Start low-dose JAMAAL inhibitor, patient possible not able to tolerate beta- mike because of bradycardia SVT, follow-up with cardiology Left bundle branch block: History of positive Lyme test in 2013, has sent Lyme disease checking Diabetic, HbA1c was checked, 5.7, stable continue current care hx of asthma, bronchitis,dyslipidemia, hypertension, rheumatoid arthritis, sinusitis, stable continue current care DVT prophylaxis covered Instructions / Follow-Up you have atypical type chest discomfort recent left bundle branch block your left heart cath was unremarkable you need to follow up as instructed for the post cardiac catheterization instruction per security business analyst - you need to follow up with your primary care physician in 1 week, - take medication as instructed, never overdose or any misuse, or take with alcohol, because misuse of medicine may cause organ damage or , call your primary care physician if have questions of medicaitons. - call your primary care physician OR go to local emergency room if has any fever/chill, chest pain, shortness of breathing, nausea/vomiting/abdominal pain , facial droop/slurry speech/local weakness, or if has any questions. - fall precaution - diet as instructed - you need to follow up with your subspecialist, such as security business analyst Total Time Spent: Less than 30 minutes This includes examination of the patient, discharge planning, medication reconciliation, and communication with other providers. Discharge Instructions Please refer to the electronic Patient Visit Report (Discharge Instructions) for additional information. Additional Copies To Ilya Rubio M.D.
--- NOTE | 2017-10-14 13:44 | [facility] Operative Report ---
Operative Report Date of Service October 02, 2017. Operative Report Procedure performed: Cardiac catheterization Staff gel coat sprayer: Curt To Indication: Patient with a history of a cardiomyopathy Procedure in detail: The patient was informed of the risks benefits and alternatives to the intended procedure, he understood such an which proceed. He was taken to the cardiac catheterization suite in a fasting state. Conscious sedation was administered per protocol the patient was monitored electrocardiographically throughout today 's procedure. The right wrist area was prepped and draped in usual sterile fashion. This area was anesthetized using subcutaneous menstruation lidocaine solution. The right radial artery was then accessed using Seldinger technique, and a arterial sheath was placed at this site over a guidewire. The sheath was used to facilitate passage of the cardiac catheter for coronary angiography and left heart catheterization. Coronary angiogram was then obtained in multiple orthogonal views prior to removal of the catheter. At the conclusion of the procedure the sheath was removed and hemostasis was achieved at the access site using manual pressure. The patient tolerated procedure well, there were no immediate complications. Equipment used: 5 [place] [employer] Findings: Opening aortic pressure: 107/72 Left ventricular pressure: 113/1 Closing pressure: 112/66 Angiography: Left main: This vessel was short. It divided into the LAD, a small RI and left circumflex. No obstructive disease LAD: Normal in size. Transapical. Large first diagonal and a small D2. No disease Lcx: Large 1st OM and smaller OM2 and OM3. No disease RCA: Dominant. No disease Impression: Right dominant system No obstructive coronary disease Normal LV filling pressure I attest to the content of the Intraoperative Record and any orders documented therein. Any exceptions are noted below.
== END 2017-10-02 17:05 | disposition home or self-care (01) | DRG 287 ==
LOC: C.EDB 16:47 → C.2T 20:00
PROVIDERS: ADMIT Family Medicine; ATTEND Hospitalist
PROC: 4A023N7 Measurement of Cardiac Sampling and Pressure, Left Heart, Percutaneous Approach (ICD-10-PCS; principal; 2017-10-02 07:19)
PROC: B211YZZ Fluoroscopy of Multiple Coronary Arteries using Other Contrast (ICD-10-PCS; principal; 2017-10-02 07:19)
DX: R07.89 Other chest pain (principal); I42.9 Cardiomyopathy, unspecified; C85.90 Non-Hodgkin lymphoma, unspecified, unspecified site; I47.1 Supraventricular tachycardia; I44.7 Left bundle-branch block, unspecified; E11.9 Type 2 diabetes mellitus without complications; E78.5 Hyperlipidemia, unspecified; I10 Essential (primary) hypertension; K21.9 Gastro-esophageal reflux disease without esophagitis; M06.9 Rheumatoid arthritis, unspecified; J45.909 Unspecified asthma, uncomplicated; Z79.82 Long term (current) use of aspirin; Z79.899 Other long term (current) drug therapy; Z88.2 Allergy status to sulfonamides; Z83.3 Family history of diabetes mellitus

== ENCOUNTER → 2017-09-30 | Outpatient (CLI) | payer BC ==
[~2017-09-30] MED LIST changes: +ASPEC81 PO; +CRG625 PO; -HYDR-5688 PO; +LPR25 PO; +LPT40 PO; +LSN25 PO; +RANI150T85 PO
[2017-09-30 17:14] LABS: BLOOD UREA NITROGEN 18 mg/dl (7-18); CALCIUM 9.2 mg/dl (8.5-10.1); CARBON DIOXIDE 29 mmol/L (21-32); GLUCOSE 102 mg/dl (70-99); POTASSIUM 3.8 mmol/L (3.5-5.1); SODIUM 140 mmol/L (136-145)
[2017-09-30 17:19] LABS: CKMB 3.9 ng/ml (0.5-3.6)
== END | disposition home or self-care (01) ==
LOC: C.LAB 15:26
PROVIDERS: ATTEND Physician Assistant Medical
DX: R94.31 Abnormal electrocardiogram [ECG] [EKG] (principal); R07.9 Chest pain, unspecified

== ENCOUNTER 2017-11-22 22:40 | Emergency (ER) | payer BC, OTHER ==
[~2017-11-22] VITALS: Ht 180.3 cm; Wt 100.0 kg
[~2017-11-22 22:40] MED LIST changes: -AMLO-110 PO; +ASPI-320 PO; +CRG625 PO; +LPT40 PO; +LSN25 PO; +RANI150T85 PO
[2017-11-22 22:44] VITALS: TEMP 37; Ht 180.3 cm; Wt 100.0 kg
[2017-11-22] MEDS ORDERED: ONDANSETRON INJ 2 MG/ML 2 ML VIAL IV STA (22:53)
[2017-11-22] MEDS ORDERED: MoRPHine SULFATE 4 MG/ML 1 ML CARP\\VIAL IV STA (22:53)
[2017-11-22 23:45] LABS: BASO % 0.3 %; BASO ABS # 0.03 K/uL (0-0.2); EOS % 3.5 %; EOS ABS # 0.34 K/uL (0-0.5); HEMATOCRIT 40.6 % (42-52); HEMOGLOBIN 14.6 g/dL (14.0-18.0); IG# 0.03 K/uL (0.00-0.02); LYMPH % 10.8 %; LYMPH ABS # 1.05 K/uL (1.2-3.4); MEAN PLATELET VOLUME 9.6 fL (7.4-10.4); MONO % 10.2 %; NEUT % 74.9 %; NEUT ABS # 7.31 K/uL (1.4-6.5); PLATELET COUNT 144 K/uL (130-400); RED CELL DISTRIBUTION WIDTH SD 42.4 fL (36.4-46.3); WHITE BLOOD COUNT 9.76 K/uL (4.8-10.8)
[2017-11-23 00:05] LABS: ALBUMIN 3.7 gm/dl (3.4-5.0); CALCIUM 8.8 mg/dl (8.5-10.1); CREATININE 0.88 mg/dl (0.60-1.40); POTASSIUM 3.8 mmol/L (3.5-5.1); TOTAL PROTEIN 7.2 gm/dl (6.4-8.2)
[2017-11-23] MEDS ORDERED: LORA-741 PO (00:37)
[2017-11-23] MEDS ORDERED: CARV6.252 PO (00:37)
[2017-11-23] MEDS ORDERED: ALBU18002 INH (00:37)
[2017-11-23] MEDS ORDERED: LSN25 PO (00:37)
[2017-11-23] MEDS ORDERED: MoRPHine SULFATE 4 MG/ML 1 ML CARP\\VIAL IV STA (01:15)
[2017-11-23 02:21] VITALS: BP 132/60; PULSE 66; O2SAT 96
[2017-11-23] MEDS ORDERED: OXYC1TAB3 PO (02:27)
[2017-11-23] MEDS ORDERED: AMOX875T PO (02:27)
[2017-11-23] MEDS ORDERED: AMOXICILLIN/CLAVULANATE TAB 875 MG TAB PO ONE (02:29)
[2017-11-23] MEDS ORDERED: AMOXICIL/CLAVU 875MG HOME PACK PO ONE (02:29)
[2017-11-23] MEDS ORDERED: OXYCODONE IR HOME PACK PO ONE (02:30)
--- NOTE | 2017-11-23 02:36 | EMERGENCY ROOM VISIT NOTE ---
History Report prepared by Guillermina: Sue Mena Under the Supervision of: Dr. Justino Ren M.D. First contact with patient: 22:48 Chief Complaint: ABDOMINAL PAIN Stated Complaint: SHARP LOWER ABDOMINAL PAIN,HX DIVIRTICULITIS History of Present Illness The patient is a 67 year old male who presents to the Emergency Room with complaints of persistent left lower abdominal pain starting last evening. He describes the pain as sharp and cramping. He initially thought it was gas. The pain feels like diverticulitis. The pain worsens with sitting up and wearing tight pants. His temperature was 99.7 today. He has been urinating more than usual. He denies any vomiting, diarrhea, or rectal bleeding. He drinks alcohol occasionally. He notes that he is allergic to sulfa drugs. It has been 1 year since he last had diverticulitis. Source of History: patient Onset: last evening Position: abdomen (LLQ) Quality: sharp, cramping Timing: other (persistent) Modifying Factors (Worsening): other (sitting up, tight pants) Associated Symptoms: + urinary symptoms, No vomiting, No diarrhea Note: Pt reports low grade fever. Pt denies rectal bleeding. Review of Systems See HPI for pertinent positives & negatives. A total of 10 systems reviewed and were otherwise negative. Past Medical & Surgical Medical Problems: (1) Asthma, Unspecified (2) Bronchitis (3) Diab Diamante Wo Compl, Type Ii Or Unspec Type, Uncontrolled (4) Elevated d-dimer (5) Hyperlipidemia Nec/Nos (6) Hypertension Nos (7) Lymph node enlargement (8) Lymphoma (9) New onset left bundle branch block (LBBB) (10) Rheumatoid Arthritis (11) Sinusitis (12) Sinusitis Family History Diabetes mellitus FHx: cancer (colon, gastric, brain, leukemia) TIAs Social History Smoking Status: Never Smoker Drug Use: none Marital Status: Housing Status: lives with family Occupation Status: retired Current/Historical Medications Scheduled Amoxicillin & Pot Clavulanate (Augmentin 875-125 mg), 875 MG PO BID Aspirin (Aspirin EC Low Dose), 81 MG PO DAILY Carvedilol (Coreg), 6.25 MG PO BID Lisinopril (Lisinopril), 2.5 MG PO DAILY Multivitamin (Multivitamin), 1 TAB PO DAILY Scheduled PRN Albuterol Sulfate (Proair Respiclick), 2 PUFFS INH Q4H PRN for SOB/Wheezing Cetirizine (Zyrtec), 10 MG PO DAILY PRN for Seasonal Allergies Fluticasone Propionate (Nasal) (Flonase Allergy Relief), 2 SPRAYS DAILY PRN for Seasonal Allergies Lorazepam (Ativan), 0.5 MG PO DIRECTED PRN for Anxiety/Agitation Montelukast Sodium (Singulair), 1 TAB PO HS PRN for Seasonal Allergies Oxycodone Ir (Roxicodone Ir), 5 MG PO Q4H PRN for Pain Ranitidine (Zantac), 1 TAB PO HS PRN for HEARTBURN/INDIGESTION Allergies Coded Allergies: Metronidazole (Verified Allergy, Severe, HIVES AND SHORTNESS OF BREATH, ) Sulfamethoxazole w/Trimethoprim (Verified Allergy, Severe, HIVES, 11/23/17) POLLEN (Verified Allergy, Intermediate, ITCHY EYES, SNEEZING, CONGESTION, 11/23/17) Sulfa Antibiotics (Verified Allergy, Intermediate, HIVES, GI UPSET, ) Physical Exam Vital Signs Date Time Temp Pulse Resp B/P (MAP) Pulse Ox O2 Delivery O2 Flow Rate FiO2 11/23/17 02:21 66 18 132/60 96 Room Air 11/23/17 00:25 68 18 131/61 98 Room Air 11/22/17 22:44 37.0 92 18 132/74 96 Room Air Physical Exam Constitutional: Vital signs reviewed. Eyes: Pupils are equal round reactive to light. Conjunctiva are noninjected. ENT: Pharynx is clear without erythema or exudate. Mucous membranes are moist. Neck supple without meningeal signs. Respiratory: Clear to auscultation bilaterally. Breath sounds are equal bilaterally. Cardiovascular: Regular rate and rhythm. No rubs or gallops. GI: Soft, nondistended. Suprapubic and LLQ tenderness. No guarding. Bowel sounds are present. Musculoskeletal: No peripheral edema. No lower extremity tenderness. Integumentary: No cyanosis. Neurological: The patient is awake and alert. No focal deficits. Psychiatric: Normal affect. Medical Decision & Procedures ER Provider Diagnostic Interpretation: Radiology results as stated below per my review and the radiologist's interpretation: CT Abdomen & Pelvis without contrast: Diverticulosis of the sigmoid, descending colon, transverse colon. Moderate to severe wall thickening of the sigmoid/descending colon junction associated with an inflamed diverticulum and moderate amount of surrounding fat stranding consistent with acute diverticulitis. There is a small amount of fluid in the left paracolic gutter and also in the pelvis which is likely reactive to the inflammation. No evidence of perforation or abscess. Normal appendix. Small fat-containing periumbilical hernia. Diffuse hepatic steatosis. Nonobstructing stone measuring 8 mm in the inferior left kidney. No hydronephrosis. Scoliosis. Multilevel degenerative changes of the spine. High density collection within the subcutaneous fat of the left abdominal wall measuring 2.7 cm it is of unknown etiology. Overall findings could represent a small hematoma. Recommend correlation with trauma or subcutis injections. Laboratory Results 11/22/17 23:35 Red Blood Count 4.56, Mean Corpuscular Volume 89.0, Mean Corpuscular Hemoglobin 32.0, Mean Corpuscular Hemoglobin Concent 36.0, Mean Platelet Volume 9.6, Neutrophils (%) (Auto) 74.9, Lymphocytes (%) (Auto) 10.8, Monocytes (%) (Auto) 10.2, Eosinophils (%) (Auto) 3.5, Basophils (%) (Auto) 0.3, Neutrophils # (Auto ) 7.31, Lymphocytes # (Auto) 1.05, Monocytes # (Auto) 1.00, Eosinophils # (Auto ) 0.34, Basophils # (Auto) 0.03 11/22/17 23:35 Test 11/22/17 23:20 11/22/17 23:35 Urine Color YELLOW Urine Appearance CLEAR (CLEAR) Urine pH 5.0 (4.5-7.5) Urine Specific Cadet 1.011 (1.000-1.030) Urine Protein NEG (NEG) Urine Glucose (UA) NEG (NEG) Urine Ketones NEG (NEG) Urine Occult Blood NEG (NEG) Urine Nitrite NEG (NEG) Urine Bilirubin NEG (NEG) Urine Urobilinogen NEG (NEG) Urine Leukocyte Esterase NEG (NEG) White Blood Count 9.76 K/uL (4.8-10.8) Red Blood Count 4.56 M/uL (4.7-6.1) Hemoglobin 14.6 g/dL (14.0-18.0) Hematocrit 40.6 % (42-52) Mean Corpuscular Volume 89.0 fL (80-100) Mean Corpuscular Hemoglobin 32.0 pg (25-34) Mean Corpuscular Hemoglobin Concent 36.0 g/dl (32-36) Platelet Count 144 K/uL (130-400) Mean Platelet Volume 9.6 fL (7.4-10.4) Neutrophils (%) (Auto) 74.9 % Lymphocytes (%) (Auto) 10.8 % Monocytes (%) (Auto) 10.2 % Eosinophils (%) (Auto) 3.5 % Basophils (%) (Auto) 0.3 % Neutrophils # (Auto) 7.31 K/uL (1.4-6.5) Lymphocytes # (Auto) 1.05 K/uL (1.2-3.4) Monocytes # (Auto) 1.00 K/uL (0.11-0.59) Eosinophils # (Auto) 0.34 K/uL (0-0.5) Basophils # (Auto) 0.03 K/uL (0-0.2) RDW Standard Deviation 42.4 fL (36.4-46.3) RDW Coefficient of Variation 13.0 % (11.5-14.5) Immature Granulocyte % (Auto) 0.3 % Immature Granulocyte # (Auto) 0.03 K/uL (0.00-0.02) Anion Gap 8.0 mmol/L (3-11) Est Creatinine Clear Calc Drug Dose 98.1 ml/min Estimated GFR () 103.0 Estimated GFR (Non- 88.9 BUN/Creatinine Ratio 16.4 (10-20) Calcium Level 8.8 mg/dl (8.5-10.1) Total Bilirubin 0.8 mg/dl (0.2-1) Direct Bilirubin 0.2 mg/dl (0-0.2) Aspartate Amino Transf (AST/SGOT) 27 U/L (15-37) Alanine Aminotransferase (ALT/SGPT) 32 U/L (12-78) Alkaline Phosphatase 66 U/L (45-117) Total Protein 7.2 gm/dl (6.4-8.2) Albumin 3.7 gm/dl (3.4-5.0) Lipase 229 U/L (73-393) Laboratory results as reviewed by me. Medications Administered Medications (Trade) Dose Ordered Sig/Damon Route Start Time Stop Time Status Last Admin Dose Admin Morphine Sulfate (MoRPHine SULFATE INJ) 4 mg ONE STAT IV 11/22/17 22:53 11/22/17 22:55 DC 11/22/17 23:33 4 MG Ondansetron HCl (Zofran Inj) 4 mg NOW STAT IV 11/22/17 22:53 11/22/17 22:55 DC 11/22/17 23:31 4 MG Morphine Sulfate (MoRPHine SULFATE INJ) 4 mg NOW STAT IV 11/23/17 01:15 11/23/17 01:16 DC 11/23/17 01:26 4 MG Amoxicillin/ Clavulanate Potassium (Augmentin Tab) 875 mg BID PO 11/23/17 09:00 11/25/17 08:59 11/23/17 02:31 875 MG Oxycodone HCl (Roxicodone Immediate Rel 5MG Home Pack) 1 homepack UD ONCE PO 11/23/17 02:30 11/23/17 02:31 DC 11/23/17 02:31 1 HOMEPACK Amoxicillin/ Clavulanate Potassium (Augmentin 875MG Home Pack) 1 homepack STK-MED ONCE PO 11/23/17 02:29 11/23/17 02:30 DC 11/23/17 02:29 1 HOMEPACK ED Course 2249: The patient was evaluated in room C9. A complete history and physical exam was performed. 2253: Zofran Inj 4 mg IV, Morphine Sulfate 4 mg IV. 0113: I reevaluated the patient. He is still having a little pain. I discussed his blood work with him. 0115: Morphine Sulfate 4 mg IV. 0146: Patient is at CT. 0220: I reevaluated the patient. He feels well enough to go home and doesn't want to stay in the hospital. I recommended staying on a liquid diet and follow up with his doctor within 48 hours. I discussed tonight's findings with him. He verbalized agreement of the treatment plan. He was discharged home. 0229: Augmentin Tab 875 mg PO, Augmentin 1 homepack PO. 0230: Oxycodone HCl 1 homepack PO. Medical Decision This is a 67-year-old male who presents with lower abdominal pain. Differential diagnosis includes diverticulitis, perforation, abscess, UTI, kidney stone. I did perform a limited focused review of portions of the patient 's old chart on the electronic medical record. The patient was admitted in September for chest pain. He had an unremarkable heart catheterization. I did evaluate the patient as noted above. The patient is presenting with left lower quadrant and suprapubic pain. He states his symptoms feel similar to his previous episode of diverticulitis. IV access was established. I did treat the patient with IV morphine and Zofran. I did order and personally review the patient's urine analysis as described above. There is no evidence of blood or infection. I did order and review the patient's blood work as noted in the electronic medical record. His white blood cell count is not elevated. I did order a CT of the abdomen and pelvis. I did review the images myself as well as the radiology report as described above. He does have diverticulitis as described above. There is no perforation or abscess noted. I did reassess the patient. He is feeling better. I did discuss the test results with him. Due to the extent of the diverticulitis of the discuss admission with him but he stated that he felt well enough to go home. He was advised to stay on a liquid diet and to follow-up with his doctor within 48 hours. He was given precautions regarding his prescriptions. He is given an OxyIR home pack and Augmentin home pack. He was discharged with a prescription for Augmentin and oxycodone. [place] Drug Monitoring Program Search Results: patient reviewed within database, no issues identified Drug Monitoring Findings: Patient has a regular prescription for Ativan. Medication Reconcilliation Current Medication List: was personally reviewed by me Blood Pressure Screening Patient's blood pressure: Elevated blood pressure Blood pressure disposition: Elevated BP felt to be situational Impression Primary Impression: Acute diverticulitis Scribe Attestation The scribe's documentation has been prepared under my direct and personally reviewed by me in its entirety. I confirm that the note above accurately reflects all work, treatment, procedures, and medical decision making performed by me. Departure Information Dispostion Home / Self-Care Prescriptions Amoxicillin & Pot Clavulanate (Augmentin 875-125 mg) 1 Tab Tab 875 MG PO BID for 13 Days, #26 TAB Prov: Justino Ren M.D. 11/23/17 Oxycodone Ir (Roxicodone Ir) 5 Mg Tab 5 MG PO Q4H Y for Pain, #20 TAB Prov: Justino Ren M.D. 11/23/17 Referrals Ilya Rubio M.D. (PCP) Forms Call Back Authorization, HOME CARE DOCUMENTATION FORM, IMPORTANT VISIT INFORMATION Patient Instructions Diverticulitis Dc, My [facility] Additional Instructions You have been examined and treated today on an emergency basis only. This is not a substitute for, or an effort to provide, complete comprehensive medical care. It is impossible to recognize and treat all injuries or illnesses in a single emergency department visit. It is therefore important that you follow up closely with your physician within 48 hours. Call as soon as possible for an appointment. Return for worsening symptoms or if you develop fever, vomiting, or any other concerning symptoms. Stay on a liquid diet until you see your doctor within 48 hours. Use oxycodone sparingly as it will interact with your Ativan and can cause respiratory depression (decreased breathing).
--- NOTE | 2017-11-23 07:33 | DIAGNOSTIC IMAGING REPORT ---
ABD/PELVIS WITHOUT FOR STONE CLINICAL HISTORY: 67 years-old Male presenting with eval for stone/divertic. TECHNIQUE: Multidetector CT of the abdomen and pelvis was performed without the use of intravenous contrast. IV contrast: None. A dose lowering technique was used consistent with the principles of ALARA (as low as reasonably achievable). COMPARISON: 04/01/2016. CT DOSE (mGy.cm): The estimated cumulative dose is 1652.47 mGy.cm. 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 Lung bases: Minimal basilar opacities, likely atelectasis. Normal heart size. No pericardial or pleural effusion. Liver: Normal morphology. Density consistent with hepatic steatosis. Biliary: No intrahepatic or extrahepatic biliary ductal dilatation. Normal gallbladder. Pancreas: Mild parenchymal atrophy. Few calcifications in the region of the pancreas may be parenchymal versus vascular. No pancreatic ductal dilatation. Spleen: Normal noncontrast appearance. Adrenal glands: Normal noncontrast appearance. Kidneys and ureters: Punctate nonobstructing calculus in the interpolar region of the right kidney. 9 mm nonobstructing calculus at the lower pole of the left kidney. No hydronephrosis. Mild nonspecific perinephric fat stranding. Normal noncontrast appearance of the kidneys otherwise. Ureters normal. Bladder: Circumferential bladder wall thickening. Pelvic organs: Prostate enlargement likely secondary to benign prostatic hyperplasia. Bowel: Diverticulosis of the proximal sigmoid colon as well as the transverse and descending colon. There is focal wall thickening at the junction of the descending and sigmoid colon with significant pericolonic fat infiltration and adjacent peritoneal thickening with trace left paracolic fluid. No extraluminal foci of gas or loculated collection. The appendix is normal. No bowel obstruction. Physiologic distention of the proximal jejunum. Peritoneal cavity: Small free fluid in the pelvis and right paracolic gutter. Multiple soft tissue nodules appear superficial to the peritoneum in the left anterior abdominal wall (series 3 images 337, 332, 320). These may represent small lymph nodes or nodular reactive change of the peritoneum. No free intraperitoneal gas. Lymph nodes: No gross lymphadenopathy allowing for noncontrast technique. Enlarged left inguinal lymph node measuring 14 mm in the short axis (series 3 image 400), new from prior and possibly reactive. Subcentimeter prominent left external iliac lymph nodes. Vasculature: Atherosclerosis of the normal caliber abdominal aorta. Abdominal wall: Focal hyperdense collection in the left anterior abdominal wall centered in the subcutaneous tissue with mild surrounding inflammatory change. This collection measures 2.3 x 1.7 cm. Hyperdensity suggests a hematoma. Small umbilical hernia also noted. Musculoskeletal: Degenerative changes of the spine. IMPRESSION: 1. Findings consistent with acute uncomplicated diverticulitis of the junction of this descending and sigmoid colon. No extraluminal foci of gas or abscess. 2. Nonspecific nodular soft tissue superficial to the anterior peritoneum overlying the site of diverticulitis here these may represent reactive lymph nodes or nodular reactive change of the peritoneum. Attention on follow-up. 3. Pathologically enlarged left inguinal lymph node most likely reactive. Attention on follow-up. 4. Bilateral nonobstructing renal calculi. 5. Hepatic steatosis. 6. Small amount of ascites, likely reactive. 7. Left anterior abdominal wall hematoma suspected, likely from medication administration. Correlate clinically. Electronically signed by: Ilya Fink M.D. 11/23/2017 7:32 AM Dictated Date/Time: 11/23/2017 7:21 AM
[2017-11-23] MEDS ORDERED: AMOXICILLIN/CLAVULANATE TAB 875 MG TAB PO SCH (09:00)
== END 2017-11-23 02:41 | disposition home or self-care (01) ==
LOC: C.EDB 22:41 → C.EDC 11-23 02:41
DX: K57.32 Diverticulitis of large intestine without perforation or abscess without bleeding (principal); R10.32 Left lower quadrant pain; C85.90 Non-Hodgkin lymphoma, unspecified, unspecified site; E11.9 Type 2 diabetes mellitus without complications; I10 Essential (primary) hypertension; M06.9 Rheumatoid arthritis, unspecified; J45.909 Unspecified asthma, uncomplicated; Z79.82 Long term (current) use of aspirin; Z79.899 Other long term (current) drug therapy; Z88.2 Allergy status to sulfonamides; Z83.3 Family history of diabetes mellitus; Z82.49 Family history of ischemic heart disease and other diseases of the circulatory system

== ENCOUNTER → 2018-02-12 | Outpatient (CLI) | payer BC ==
[~2018-02-12] MED LIST changes: +ALBU18002 INH; -ALBU1AER9 INH; +CARV6.252 PO; -CRG625 PO; -DEXT1TAB50 PO; +LORA-741 PO; -LPT40 PO; -MOME100A INH; -MOME200A INH; +SINCALIDE INJ 1.9 MCG in SODIUM CHLORIDE 0.9% 100ML 100 ML IV ONE
--- NOTE | 2018-02-12 13:16 | DIAGNOSTIC IMAGING REPORT ---
NUCLEAR MEDICINE HEPATOBILIARY SCAN WITH EJECTION FRACTION HISTORY: GALLSTONES,RUQ PAIN COMPARISON: Abdominal ultrasound 01/09/2018. TECHNIQUE: Immediately following the intravenous administration of 5 mCi Tc-99m Choletec, dynamic anterior abdominal imaging pre/post 1.9 mcg of Kinevac was performed. FINDINGS: Uniform hepatic tracer accumulation is shown. Prompt intrahepatic biliary excretion is seen. The gallbladder and common bile duct are visualized by 20 minutes. Slight delayed visualization of the small bowel which is visualized at 70 minutes. However, this could represent a normal variant. The gall bladder ejection fraction following administration of Kinevac was 66% (normal >35%). IMPRESSION: 1. No evidence for cystic duct obstruction. 2. Gallbladder ejection fraction calculated to be 66 %. 3. Slight delayed visualization of the small bowel which is visualized at 70 minutes. However, this could represent a normal variant. Electronically signed by: Rafael Hampton M.D. 02/12/2018 1:15 PM Dictated Date/Time: 02/12/2018 1:05 PM
== END | disposition home or self-care (01) ==
LOC: C.NUCL 09:51
PROVIDERS: ATTEND Internal Medicine Gastroenterology
DX: R10.11 Right upper quadrant pain (principal); K80.20 Calculus of gallbladder without cholecystitis without obstruction

== ENCOUNTER → 2018-02-25 | Day surgery (SDC) | payer BC ==
[2018-02-24 14:07] VITALS: BMI 29.0
[~2018-02-25] VITALS: Ht 180.3 cm; Wt 95.9 kg
[~2018-02-25] MED LIST changes: +CHOL20009 PO; -LORA-741 PO; +PROB1TAB16 PO; +PROPOFOL IV EMULSION 10 MG/ML 20 ML VIAL ONE; +PSYL48.59 PO; -RANI150T85 PO; -SINCALIDE INJ 1.9 MCG in SODIUM CHLORIDE 0.9% 100ML 100 ML IV ONE
[2018-02-25 14:19] VITALS: Ht 180.3 cm; Wt 95.9 kg
--- NOTE | 2018-02-25 14:34 | Endo History and Physical ---
History & Physical Date of Service: Feb 25, 2018. Chief Complaint: RUQ pain Referring Physician: Deidre Rubio History of Present Illness For colonoscopy Past Medical History Arthritis, Asthma, Gastrointestinal Disorder, Reflux, Cancer Past Surgical History Hx Cardiac Surgery: Yes (HEART CATH X2, NO STENTS) Hx Internal Defibrillator: No Hx Pacemaker: No Hx Abdominal Surgery: No Hx of Implantable Prosthesis: No Hx Post-Op Nausea and Vomiting: No Hx Cancer Surgery: Yes (INGUINAL LYMPH NODE EXCISION/BIOPSY) Hx Thoracic Surgery: Yes (A-PORT INSERTION AND REMOVAL) Hx Orthopedic: Yes (L/R Knee Arthroscopy, R Shoulder surgery) Hx Urinary Tract Surgery: No Family History Colon CA Social History Smoking Status: Never Smoker Hx Substance Use: No Hx Alcohol Use: Yes (social use, up to 6-pack beer per week) Allergies Coded Allergies: Metronidazole (Verified Allergy, Severe, HIVES AND SHORTNESS OF BREATH, ) Sulfamethoxazole w/Trimethoprim (Verified Allergy, Severe, HIVES, 02/24/18) POLLEN (Verified Allergy, Intermediate, ITCHY EYES, SNEEZING, CONGESTION, 02/24/18) Sulfa Antibiotics (Verified Allergy, Intermediate, HIVES, GI UPSET, ) Current Medications Reported Home Medications Medications Dose Route/Sig Max Daily Dose Days Date Category Vitamin D (Cholecalciferol) 2,000 Unit Tab 1 Tab PO QAM 02/24/18 Reported Metamucil (Psyllium) 48.57 % Pow 1 Dose PO DAILY 02/24/18 Reported Probiotic (Probiotic Product) 1 Tab Tab 1 Tab PO DAILY 02/24/18 Reported Lisinopril 2.5 Mg Tab 2.5 Mg PO DAILY 11/23/17 Reported Coreg (Carvedilol) 6.25 Mg Tab 6.25 Mg PO BID 11/23/17 Reported Proair Respiclick (Albuterol Sulfate) 108 Mcg/Act Aer 2 Puffs INH Q4H PRN 11/23/17 Reported Aspirin EC Low Dose (Aspirin) 81 Mg Ectab 81 Mg PO DAILY 10/01/17 Reported Multivitamin (Multivitamins) Tab 1 Tab PO DAILY 12/17/16 Reported Flonase Allergy Relief (Fluticasone Propionate (Nasal)) 50 Mcg/Act Spr 2 Sprays DAILY PRN 12/17/16 Reported Zyrtec (Cetirizine HCl) 10 Mg Tab 10 Mg PO DAILY PRN 12/17/16 Reported Singulair (Montelukast Sodium) 10 Mg Tab 1 Tab PO HS PRN 12/03/16 Reported Vital Signs Weight (Kilograms): 95.91 Height (Feet): 5 Height (Inches): 11 Date Time Temp Pulse Resp B/P (MAP) Pulse Ox O2 Delivery O2 Flow Rate FiO2 02/25/18 14:18 36.8 65 18 128/79 (95) 98 Room Air Physical Exam General Appearance: WD/WN Respiratory/Chest: Respiratory effort: no dyspnea Cardiovascular: Heart Auscultation: RRR Abdomen: Inspection & Palpation: soft Assessment and Plan RUQ pain for colonoscopy
--- NOTE | 2018-02-25 15:02 | Discharge Instructions ---
Endoscopy Patient Instructions Date / Procedure(s) Performed Feb 25, 2018. Colonoscopy Allergy Information Coded Allergies: Metronidazole (Verified Allergy, Severe, HIVES AND SHORTNESS OF BREATH, ) Sulfamethoxazole w/Trimethoprim (Verified Allergy, Severe, HIVES, 02/24/18) POLLEN (Verified Allergy, Intermediate, ITCHY EYES, SNEEZING, CONGESTION, 02/24/18) Sulfa Antibiotics (Verified Allergy, Intermediate, HIVES, GI UPSET, ) Discharge Date / Findings Feb 25, 2018. diverticulosis, polyp Medication Instructions Restart Stopped Medication(s): resume meds Reported Home Medications Medications Dose Route/Sig Max Daily Dose Days Date Category Vitamin D (Cholecalciferol) 2,000 Unit Tab 1 Tab PO QAM 02/24/18 Reported Metamucil (Psyllium) 48.57 % Pow 1 Dose PO DAILY 02/24/18 Reported Probiotic (Probiotic Product) 1 Tab Tab 1 Tab PO DAILY 02/24/18 Reported Lisinopril 2.5 Mg Tab 2.5 Mg PO DAILY 11/23/17 Reported Coreg (Carvedilol) 6.25 Mg Tab 6.25 Mg PO BID 11/23/17 Reported Proair Respiclick (Albuterol Sulfate) 108 Mcg/Act Aer 2 Puffs INH Q4H PRN 11/23/17 Reported Aspirin EC Low Dose (Aspirin) 81 Mg Ectab 81 Mg PO DAILY 10/01/17 Reported Multivitamin (Multivitamins) Tab 1 Tab PO DAILY 12/17/16 Reported Flonase Allergy Relief (Fluticasone Propionate (Nasal)) 50 Mcg/Act Spr 2 Sprays DAILY PRN 12/17/16 Reported Zyrtec (Cetirizine HCl) 10 Mg Tab 10 Mg PO DAILY PRN 12/17/16 Reported Singulair (Montelukast Sodium) 10 Mg Tab 1 Tab PO HS PRN 12/03/16 Reported Provider Instructions Activity Restrictions - No exercising or heavy lifting for 24 hours. - Do not drink alcohol the day of the procedure. - Do not drive a car or operate machinery until the day after the procedure. - Do not make any important decisions or sign important papers in 24 hours after the procedure. Following Day: - Return to full activity which may include returning to work/school. Diet Start your diet with liquids and light foods (jello, soup, juice, toast). Then eat your usual diet if not nauseated. Treatment For Common After Affects For mild abdominal pain, bloating, or excessive gas: - Rest - Eat lightly - Lie on right side Follow-Up Information Follow-up with DR. UPTON as scheduled Anesthesia Information What You Should Know You have had a procedure that required some medicine to reduce anxiety and discomfort. This treatment is called moderate sedation. After receiving the treatment, you may be sleepy, but you will be able to breathe on your own. The effects of the treatment may last for several hours. Follow these instructions along with Activity/Diet recommendations noted above: * Do NOT do anything where dizziness or clumsiness would be dangerous. * Rest quietly at home today, then you can be up and about tomorrow. * Have a responsible person stay with you the rest of today. * You may have had an I.V. today. If so, you may take the dressing off later today. Recommendations Call your doctor if: * Trouble breathing * Continuous vomiting for more than 24 hours * Temperature above 101 degrees * Severe abdominal pain or bloating * Pain not relieved by pain medicine ordered * There is increased drainage or redness from any incision * A large amount of rectal bleeding greater than 2-3 tablespoons. (If you had a polyp/s removed or have hemorrhoids, a small amount of blood - from the rectum is to be expected.) * You have any unanswered questions or concerns. IN THE EVENT OF A SERIOUS EMERGENCY, GO TO THE NEAREST EMERGENCY ROOM Your discharge instructions were prepared by provider Alex Leiva. Patient Instructions Signature Page Gilberto Stovall Patient (or Guardian) Signature/Date: I have read and understand the instructions given to me by my caregivers. Caregiver/RN/Doctor Signature/Date: The above-named patient and/or guardian has received patient instructions on this date. + Original Patient Signature Page (only) stays with chart. Please make copy for patient.
--- NOTE | 2018-02-25 15:08 | GI REPORT ---
Patient Name: Gilberto Stovall Procedure Date: 02/25/2018 2:31 PM Date of : 1950 Admit Type: Outpatient Age: 67 Gender: Male Attending MD: Alex Leiva MD Procedure: Colonoscopy Providers: Alex Leiva MD Referring MD: Ilya Rubio Md Indications: Abdominal pain in the right upper quadrant Medicines: Propofol total dose 300 mg IV Complications: No immediate complications. Estimated Blood Loss: Estimated blood loss: none. Procedure: Pre-Anesthesia Assessment: - Prior to the procedure, a History and Physical was performed, and patient medications, allergies and sensitivities were reviewed. The patient's tolerance of previous anesthesia was reviewed. - The risks and benefits of the procedure and the sedation options and risks were discussed with the patient. All questions were answered and informed consent was obtained. - Prior to the procedure, a History and Physical was performed, and patient medications, allergies and sensitivities were reviewed. The patient's tolerance of previous anesthesia was reviewed. - The risks and benefits of the procedure and the sedation options and risks were discussed with the patient. All questions were answered and informed consent was obtained. After I obtained informed consent, the scope was passed under direct vision. Throughout the procedure, the patient's blood pressure, pulse, and oxygen saturations were monitored continuously. The scope was introduced through the anus and advanced to the terminal ileum. The colonoscopy was performed without difficulty. The patient tolerated the procedure well. The quality of the bowel preparation was good. Findings: A 4 mm polyp was found in the hepatic flexure. The polyp was sessile. The polyp was removed with a cold biopsy forceps. Resection and retrieval were complete. Estimated blood loss was minimal. Multiple diverticula were found in the sigmoid colon, splenic flexure and ascending colon. Impression: - No specimens collected. Recommendation: - Discharge patient to home (ambulatory). - Continue present medications. - Await pathology results. - Return to GI office as previously scheduled. Alex Leiva M.D. Alex Leiva MD 02/25/2018 3:07:55 PM This report has been signed electronically. Note Initiated On: 02/25/2018 2:31 PM Number of Addenda: 0 I attest to the content of the Intraoperative Record and orders documented therein, exceptions below {[id number]}
[2018-02-25 15:34] VITALS: BP 129/82; PULSE 54; O2SAT 93
--- NOTE | 2018-02-25 15:35 | Anesthesiology Progress Note ---
Anesthesia Post Op Note Date & Time Feb 25, 2018 at 15:34 Vital Signs Pain Intensity: 0 Vital Signs Past 12 Hours Date Time Temp Pulse Resp B/P (MAP) Pulse Ox O2 Delivery O2 Flow Rate FiO2 02/25/18 15:19 62 18 106/86 (93) 93 Room Air 02/25/18 15:04 69 16 111/78 (89) 94 Nasal Cannula 4 02/25/18 14:18 36.8 65 18 128/79 (95) 98 Room Air Notes Mental Status: alert / awake / arousable, participated in evaluation Pt Amnestic to Procedure: Yes Nausea / Vomiting: adequately controlled Pain: adequately controlled Airway Patency, RR, SpO2: stable & adequate BP & HR: stable & adequate Hydration State: stable & adequate Anesthetic Complications: no major complications apparent
== END | disposition home or self-care (01) ==
LOC: C.GI 13:45
PROVIDERS: ATTEND Internal Medicine Gastroenterology
DX: R10.11 Right upper quadrant pain (principal); R93.5 Abnormal findings on diagnostic imaging of other abdominal regions, including retroperitoneum; Z80.0 Family history of malignant neoplasm of digestive organs; C85.90 Non-Hodgkin lymphoma, unspecified, unspecified site; K21.9 Gastro-esophageal reflux disease without esophagitis; I10 Essential (primary) hypertension; J45.909 Unspecified asthma, uncomplicated; I48.91 Unspecified atrial fibrillation; M19.90 Unspecified osteoarthritis, unspecified site; E66.9 Obesity, unspecified; Z68.29 Body mass index [BMI] 29.0-29.9, adult; Z87.442 Personal history of urinary calculi; Z88.2 Allergy status to sulfonamides; Z88.8 Allergy status to other drugs, medicaments and biological substances